=== PATIENT | female | born 1945 | race Hispanic/Latino ===

== ENCOUNTER → 2018-06-26 | Day surgery (SDC) | payer MEDICARE ==
[2018-06-25 11:21] LABS: BASOPHILS % 0.2 % (0.0-1.0); EOSINOPHILS # (AUTO) 0.1 (0.0-0.4); EOSINOPHILS % 1.8 % (0.0-6.0); HEMATOCRIT 43.8 % (34.2-44.1); HEMOGLOBIN 14.2 g/dL (12.0-16.0); LYMPHOCYTES # (AUTO) 1.5 (1.0-3.2); LYMPHOCYTES % 33.8 % (18.0-39.1); MEAN CORPUSCULAR HEMOGLOBIN 29.2 pg (28-32); MEAN CORPUSCULAR HGB CONC 32.4 g/dL (31-35); MEAN CORPUSCULAR VOLUME 90.1 fL (81-99); MONOCYTES # (AUTO) 0.4 (0.2-0.8); MONOCYTES % 8.5 % (4.4-11.3); NEUTROPHILS # (AUTO) 2.4 (2.1-6.9); NEUTROPHILS % 55.5 % (38.7-80.0); PLATELET COUNT 212 x10e3/uL (140-360); RED BLOOD COUNT 4.86 x10e6/uL (3.6-5.1); RED CELL DISTRIBUTION WIDTH 12.9 % (11.7-14.4)
--- NOTE | 2018-06-25 11:49 | Diagnostic Imaging Report ---
EXAMINATION: CHEST 2 VIEWS INDICATION: Pre-op. COMPARISON: None FINDINGS: TUBES and LINES: None. LUNGS: Lungs are well inflated. Lungs are clear. There is no evidence of pneumonia or pulmonary edema. PLEURA: No pleural effusion or pneumothorax. HEART AND MEDIASTINUM: The cardiomediastinal silhouette is unremarkable. BONES AND SOFT TISSUES: No acute osseous abnormality. UPPER ABDOMEN: No free air under the diaphragm. IMPRESSION: No acute radiographic abnormality. Signed by: Dr. Mario Jalloh MD on 06/25/2018 11:46 AM
[~2018-06-26] MED LIST: CEFTRIAXONE SOD 1 GM/NS 50 ML 50 ML IV ONE; DEXAMETHASONE SOD PHOS INJ 4 MG/ML VIAL ONE; FENTANYL CITRATE/PF 100MCG/2 ML INJ ONE; IOPAMIDOL 610MG/1ML 300 MG/ML VIAL IV ONE; LEVOTHYROXINE25 MCG PO; LEVOTHYROXINE88 MCG PO; LIDOCAINE HCL 2% LOCAL INJ 5 ML SDV VIAL INJ ONE; LINZESS PO; NEXIUM40 MG PO; ONDANSETRON HCL INJ 2MG/ML 2ML 2 MG/ML VIAL ONE; PROAIR HFA INH8.5 GM INH; PROPOFOL IV EMULSION 10 MG/ML 20 ML VIAL ONE; SEVOFLURANE INHAL SOLN 250 ML PEN BTL ONE; VITAMIN D250000 UNIT PO; [UNRECOGNIZED DRUG - OTHER] INH; [UNRECOGNIZED DRUG - OTHER] OP/OT; [UNRECOGNIZED DRUG - OTHER] PO; [UNRECOGNIZED DRUG - REMARK] OP/OT
--- OUTSIDE RECORDS SUMMARY | 2018-06-26 08:38 | XMS REPORT ---
Author [facility] Address Unknown Phone Unavailable Care Team Providers Care Busboy Name Role Phone REENA GUEVARA Unavailable Unavailable Problems This patient has no known problems. Allergies, Adverse Reactions, Alerts This patient has no known allergies or adverse reactions. Medications This patient has no known medications. Results Test Description Test Time Test Comments Text Results Atomic Results Result Comments CHEST 2 VIEWS 2018-06-25 11:43:00 [place] [address] Patient Name: MALIA PACHECO MR #: [id number] : 1945 Age/Sex: 73/F Req #: [id number] Adm Physician: Ordered by: REENA GUEVARA MD Report #: [id number] Location: OR Room/Bed: Procedure: [id number] DX/CHEST 2 VIEWS Exam Date: 06/25/18 Exam Time: 1105 REPORT STATUS: Signed EXAMINATION: CHEST 2 VIEWS INDICATION: Pre-op. COMPARISON: None FINDINGS: TUBES and LINES: None. LUNGS: Lungs are well inflated. Lungs are clear. There is no evidence of pneumonia or pulmonary edema. PLEURA: No pleural effusion or pneumothorax. HEART AND MEDIASTINUM: The cardiomediastinal silhouette is unremarkable. BONES AND SOFT TISSUES: No acute osseous abnormality. UPPER ABDOMEN: No free air under the diaphragm. IMPRESSION: No acute radiographic abnormality. Signed by: Dr. Franca Moreira MD on 06/25/2018 11:46 AM Dictated By: FRANCA MOREIRA MD 1146 Transcribed By: ANKIT on 06/25/18 1146 COPY TO: REENA GUEVARA MD
[2018-06-26 10:30] VITALS: BP 124/69
--- NOTE | 2018-06-26 22:42 | Operative Report ---
DATE OF PROCEDURE: 06/26/2018 SURGEON: Rashaun Livingston MD PREOPERATIVE DIAGNOSES: 1. Multiple chronic urinary tract infections. 2. Clinical signs and symptoms of interstitial cystitis. 3. Microscopic hematuria. POSTOPERATIVE DIAGNOSES: 1. Multiple chronic urinary tract infections. 2. Clinical signs and symptoms of interstitial cystitis. 3. Microscopic hematuria. 4. Right renal filling defect. ANESTHESIA: General. ESTIMATED BLOOD LOSS: Minimal. COMPLICATIONS: None. INDICATIONS FOR PROCEDURE: Mrs. Limon is a 73-year-old female with multiple chronic urinary tract infections. She and I had a long discussion about alternatives, risks and benefits, including doing nothing, cystoscopy, IVP, retrograde problems, renal ultrasound. She voiced understanding of the options, the alternatives, the risks, and the benefits, and she elected to proceed. PROCEDURE IN DETAIL: After informed consent was obtained, the patient was taken to the operative suite. She was placed supine on the operating table. She underwent general anesthesia by Anesthesia Service. She was placed in dorsal lithotomy position, sterilely prepped and draped in a standard fashion for cystoscopy. Grade 2-3 cystocele was noted with positive vaginal atrophy. A 21-East [place]orese cystoscope was inserted per urethra and normal urethra was noted. Panendoscopy of the bladder revealed no tumors and no stones. Both ureteral orifices were in normal anatomic location and position and were seen to efflux clear urine. Bilateral retrograde pyelogram was performed; the left was normal, the right revealed a midpole filling defect, which is not cleared despite multiple attempts. With the narrow ureteral orifice, a ureteral stent was deployed with a coil in the patient's bladder and coil in patient's kidney, will return in 1-2 weeks for removal of stent and definitive ureteroscopy of this lesion. Differential diagnosis including radiolucent stone versus tumor. Bladder was drained. The patient was awakened from anesthesia and transferred to the recovery room in excellent condition. Supervision of fluoroscopy and interpretation of retrograde pyelography: I was present for the entire procedure and I supervised the fluoroscopy as no radiologist w0as present. Attention was turned towards the left and right ureters which were catheterized with an 8-East [place]orese cone-tipped catheter in retrograde fashion. Contrast was injected, left side delicate collecting systems, on the right side a midpole renal filling defect approximately 8 mm x 8 mm nonmotile. Differential diagnosis including radiolucent calculi versus tumor. Postoperative views on the right side revealed ureteral stent in adequate position. MD ANGEL Hamlin/HENNA /[id number] MTDD
== END | disposition home or self-care (01) ==
LOC: OR 08:20
PROVIDERS: ATTEND Urology
DX: N39.0 Urinary tract infection, site not specified (principal); N28.89 Other specified disorders of kidney and ureter; R35.1 Nocturia; N39.46 Mixed incontinence; N81.10 Cystocele, unspecified; N95.2 Postmenopausal atrophic vaginitis; G51.0 Bell's palsy; J45.909 Unspecified asthma, uncomplicated; Z01.810 Encounter for preprocedural cardiovascular examination; Z01.812 Encounter for preprocedural laboratory examination; Z01.818 Encounter for other preprocedural examination; Z79.82 Long term (current) use of aspirin
CPT/HCPCS: 36415; 52332; 71046; 74420; 85025; 93005; C1758; C2617; J0696; J1100; J2001; J2405; J2704; Q9967

== ENCOUNTER 2018-08-04 19:41 | Inpatient (IN) | payer MEDICARE, OTHER ==
[~2018-08-04] VITALS: Ht 160 cm; Wt 74.4 kg
[~2018-08-04 19:41] MED LIST changes: -CEFTRIAXONE SOD 1 GM/NS 50 ML 50 ML IV ONE; -DEXAMETHASONE SOD PHOS INJ 4 MG/ML VIAL ONE; -FENTANYL CITRATE/PF 100MCG/2 ML INJ ONE; -IOPAMIDOL 610MG/1ML 300 MG/ML VIAL IV ONE; -LIDOCAINE HCL 2% LOCAL INJ 5 ML SDV VIAL INJ ONE; -ONDANSETRON HCL INJ 2MG/ML 2ML 2 MG/ML VIAL ONE; -PROPOFOL IV EMULSION 10 MG/ML 20 ML VIAL ONE; -SEVOFLURANE INHAL SOLN 250 ML PEN BTL ONE
[2018-08-04] MEDS ORDERED: ACETAMINOPHEN 325 MG TAB PO PRN (20:45)
[2018-08-04] MEDS ORDERED: MEROPENEM 1GM 100 ML IV SCH (21:00)
--- NOTE | 2018-08-04 21:10 | Diagnostic Imaging Report ---
EXAMINATION: CHEST SINGLE (PORTABLE) INDICATION: ^FEVER ^[id number] ^2043 ^Y COMPARISON: 06/25/2018 FINDINGS: AP view TUBES and LINES: None. LUNGS: Limited by body habitus and low lung volumes. Central vascular congestion. PLEURA: No pleural effusion or pneumothorax. HEART AND MEDIASTINUM: The cardiomediastinal silhouette is enlarged on this AP view. BONES AND SOFT TISSUES: No acute osseous lesion. Soft tissues are unremarkable. UPPER ABDOMEN: No free air under the diaphragm. IMPRESSION: Enlarged cardiomediastinal silhouette and central vascular congestion, accentuated by low lung volumes and technique. No definite focal consolidation. Signed by: Dr. Zoran Molina MD on 08/04/2018 9:07 PM
[2018-08-04 21:29] LABS: BASOPHILS % 0.3 % (0.0-1.0); EOSINOPHILS % 0.4 % (0.0-6.0); HEMATOCRIT 44.7 % (34.2-44.1); LYMPHOCYTES # (AUTO) 1.3 (1.0-3.2); LYMPHOCYTES % 19.4 % (18.0-39.1); MEAN CORPUSCULAR HEMOGLOBIN 29.4 pg (28-32); MEAN CORPUSCULAR HGB CONC 33.6 g/dL (31-35); MEAN CORPUSCULAR VOLUME 87.5 fL (81-99); MONOCYTES # (AUTO) 0.6 (0.2-0.8); MONOCYTES % 8.5 % (4.4-11.3); NEUTROPHILS # (AUTO) 4.8 (2.1-6.9); NEUTROPHILS % 71.1 % (38.7-80.0); PLATELET COUNT 209 x10e3/uL (140-360); RED BLOOD COUNT 5.11 x10e6/uL (3.6-5.1); RED CELL DISTRIBUTION WIDTH 13.2 % (11.7-14.4)
[2018-08-04 21:31] LABS: BILIRUBIN,URINE NEGATIVE (NEGATIVE); CLARITY,URINE CLEAR (CLEAR); COLOR,URINE YELLOW (YELLOW); KETONES,URINE NEGATIVE (NEGATIVE); LEUKOCYTE ESTERASE ,URINE TRACE (NEGATIVE); NITRITE,URINE NEGATIVE (NEGATIVE); PROTEIN,URINE DIPSTICK NEGATIVE (NEGATIVE); URINE UROBILINOGEN 0.2 mg/dL (0.2 - 1)
[2018-08-04 21:40] LABS: INR 0.85; PROTHROMBIN TIME 12.1 seconds (11.9-14.5)
[2018-08-04 21:46] LABS: BACTERIA,URINE MANY /HPF; EPITHELIAL CELLS,URINE MODERATE /LPF
[2018-08-04 21:47] LABS: ALBUMIN 4.3 g/dL (3.5-5.0); ALBUMIN/GLOBULIN RATIO 1.1 (0.8-2.0); ANION GAP 14.6 mmol/L (8-16); CALCIUM 10.8 mg/dL (8.4-10.2); CREATININE, SERUM 0.92 mg/dL (0.57-1.11); POTASSIUM 3.6 mmol/L (3.5-5.1)
[2018-08-04] MEDS ORDERED: SODIUM CHLORIDE 0.9% 50ML 50 ML ONE (22:35)
[2018-08-04] MEDS ORDERED: IOPAMIDOL 370 MG/ML 200 ML INFUS..BTL INJ ONE (22:37)
--- NOTE | 2018-08-04 22:50 | Diagnostic Imaging Report ---
EXAM: CT Abdomen and Pelvis WITH contrast INDICATION: ^FEVER, LOWER ABD PAIN, ^[id number] ^5 ^Y COMPARISON: None. TECHNIQUE: Abdomen and pelvis were scanned utilizing a multidetector helical scanner from the lung base to the pubic symphysis after administration of IV contrast. Coronal and sagittal reformations were obtained. Dose modulation, iterative reconstruction, and/or weight based adjustment of the mA/kV was utilized to reduce the radiation dose to as low as reasonably achievable. Routine protocol was performed. Scan was performed when during portal venous phase. IV CONTRAST: 150 mL of Omnipaque 300 ORAL CONTRAST: Water COMPLICATIONS: None RADIATION DOSE: Total DLP: 413.53 mGy*cm Estimated effective dose: (DLP x 0.015 x size factor) mSv CTDIvol has been reviewed. It is below the limits set by the Radiation Protocol Committee (RPC). FINDINGS: LINES and TUBES: Right nephroureteral stent. LOWER THORAX: Punctate left lower lobe nodule (series 2, image 12). Additional punctate right middle and lower lobe nodules. Mild dependent atelectasis. HEPATOBILIARY: No focal hepatic lesions. No biliary ductal dilation. GALLBLADDER: No radio-opaque stones or sludge. No wall thickening. SPLEEN: No splenomegaly. PANCREAS: No focal masses or ductal dilatation. ADRENALS: No adrenal nodules KIDNEYS/URETERS: Kidneys enhance symmetrically. No hydronephrosis. No cystic or solid mass lesions. No stones. Right nephroureteral stent in place. GI TRACT: No abnormal distention, wall thickening, or evidence of bowel obstruction. Colonic diverticulosis with fat stranding adjacent to colon in left lower quadrant, representing diverticulitis. Questionable punctate foci of extraluminal air (series 2, image 65). Appendix is normal. PELVIC ORGANS/BLADDER: Unremarkable. LYMPH NODES: No lymphadenopathy. VESSELS: Unremarkable. PERITONEUM / RETROPERITONEUM: No free air or fluid. BONES: Bilateral L5 pars defects with L5-S1 grade 1 spondylolisthesis. SOFT TISSUES: Small fat-containing right inguinal hernia. IMPRESSION: 1. Colonic diverticulosis with evidence of diverticulitis in left lower quadrant. Suspected microperforation. No evidence of abscess formation. Signed by: Dr. Zoran Molina MD on 08/04/2018 10:47 PM
[2018-08-04] MEDS: SODIUM CHLORIDE 0.9% 1000ML 1,000 ML IV SCH (23:04)
[2018-08-04] MEDS ORDERED: SODIUM CHLORIDE 0.9% 1000ML 1,000 ML IV SCH (23:31)
[2018-08-04] MEDS ORDERED: ONDANSETRON HCL INJ 2MG/ML 2ML 2 MG/ML VIAL IV PRN (23:45)
[2018-08-04] MEDS ORDERED: MORPHINE SULFATE 2 MG/ML SYR 1ML IV PRN (23:45)
[2018-08-04] MEDS ORDERED: ACETAMINOPHEN 1000 MG/100 ML IV PRN (23:45)
[2018-08-05] MEDS ORDERED: PIPER-TAZ 3.375 GM 50 ML IV SCH
[2018-08-05] MEDS: METRONIDAZOLE 500MG/NS 100ML 100 ML IV SCH ×5 (01:00→17:37)
[2018-08-05 06:08] LABS: BASOPHILS % 0.3 % (0.0-1.0); EOSINOPHILS % 0.5 % (0.0-6.0); HEMATOCRIT 39.2 % (34.2-44.1); LYMPHOCYTES % 25.7 % (18.0-39.1); MEAN CORPUSCULAR HEMOGLOBIN 29.5 pg (28-32); MEAN CORPUSCULAR HGB CONC 33.2 g/dL (31-35); MEAN CORPUSCULAR VOLUME 89.1 fL (81-99); MONOCYTES # (AUTO) 0.7 (0.2-0.8); MONOCYTES % 9.5 % (4.4-11.3); NEUTROPHILS # (AUTO) 4.8 (2.1-6.9); NEUTROPHILS % 63.6 % (38.7-80.0); PLATELET COUNT 191 x10e3/uL (140-360); RED CELL DISTRIBUTION WIDTH 13.2 % (11.7-14.4)
[2018-08-05 06:28] LABS: ALBUMIN 3.5 g/dL (3.5-5.0); ALBUMIN/GLOBULIN RATIO 1.2 (0.8-2.0); ANION GAP 9.8 mmol/L (8-16); CALCIUM 9.3 mg/dL (8.4-10.2); CREATININE, SERUM 0.91 mg/dL (0.57-1.11); POTASSIUM 3.8 mmol/L (3.5-5.1)
--- NOTE | 2018-08-05 06:35 | NUR ---
Patient arrived to unit via stretcher from ER. Transferred to bed. Oriented to call light. No issues or concerns. A&Ox3. Will continue to monitor.
--- NOTE | 2018-08-05 06:58 | NUR ---
RECEIVED PATIENT RESTING IN BED. NO ACUTE DISTRESS NOTED, NO S/S OF PAIN NOTED. CALL LIGHT WITHIN REACH. BED IN THE LOWEST POSITION.
[2018-08-05 07:20] VITALS: BP 125/64
[2018-08-05 08:13] VITALS: BP 125/64
[2018-08-05] MEDS: FAMOTIDINE 20 MG/2 ML VIAL IV SCH ×2 (08:48→17:04)
[2018-08-05] MEDS: PIPER-TAZ 3.375 GM 50 ML IV SCH ×3 (08:48→17:04)
--- NOTE | 2018-08-05 11:28 | Consultation ---
DATE OF CONSULTATION: 08/05/2018 HISTORY OF PRESENT ILLNESS: The patient is a 73-year-old female, who came to the emergency room with complaints of lower abdominal pain. She says she had it for about two or three days. She has had associated nausea, no vomiting. She had evaluation with CT of the abdomen and pelvis in the emergency room, which revealed findings suggestive of diverticulosis with some mild diverticulitis, possible tiny perforation. She has ureteral stent in place at this time, which was placed recently. She has not had any diarrhea. PAST MEDICAL HISTORY: Significant for chronic obstructive pulmonary disease, hypothyroidism, previous urinary tract infections, kidney stones, hyperlipidemia. PAST SURGICAL HISTORY: Previous surgeries include section, hernia repair, shoulder surgery, as well as recent placement of a stent. ALLERGIES: SHE HAS NO KNOWN ALLERGIES. MEDICATIONS: At home are albuterol inhaler, vitamin D, Nexium, levothyroxine, Linzess, Flutivent, calcium supplement, eye drops. FAMILY HISTORY: Noncontributory. SOCIAL HISTORY: The patient does not smoke cigarettes or drink alcohol. REVIEW OF SYSTEMS: As stated above, otherwise was negative. PHYSICAL EXAMINATION: GENERAL: The patient is awake and alert. VITAL SIGNS: Normal. Blood pressure is normal. She is not tachycardic. HEENT: There is no scleral icterus. NECK: Has no masses. LUNGS: Equal breath sounds are clear bilaterally. CARDIAC: Regular rate and rhythm. ABDOMEN: Slightly distended. There is tenderness in the lower abdomen with questionable localized peritonitis in lower abdomen, greatest in the lower midline. There is no mass. There was no organomegaly. EXTREMITIES: Have no edema. NEUROLOGIC: Grossly intact. LAB TESTS: The white blood cell count is normal with normal differential. Hemoglobin and hematocrit are normal. Chemistries essentially are normal also. ASSESSMENT: A 73-year-old female with mild sigmoid diverticulitis. There are no findings that would warrant immediate surgical intervention. At this point, I recommend continue the patient on IV antibiotics as have been ordered and we will follow her clinical course. Thank you for asking me to see Ms. Limon. MD MIRTHA Shaikh/HENNA /[id number]
[2018-08-05 11:33] VITALS: BP 115/59
[2018-08-05] MEDS: SODIUM CHLORIDE 0.9% 1000ML 1,000 ML IV SCH (11:54)
[2018-08-05 15:47] VITALS: BP 121/58
--- NOTE | 2018-08-05 19:29 | NUR ---
REPORT GIVEN TO ONCOMING NURSE, PATIENT IS RESTING IN BED. NO ACUTE DISTRESS NOTED. DENIES PAIN OR DISCOMFORT. CALL LIGHT WITHIN REACH. BED IN THE LOWEST POSITION.
[2018-08-05 19:46] VITALS: BP 108/61
--- NOTE | 2018-08-05 19:46 | NUR ---
PT IS RESTING IN BED WITH FAMILY AT BEDSIDE. RESPIRATION IS EVEN AND UNLABORED, NO DISTRESS NOTED. BED IN THE LOWEST POSITION, LOCKED, AND CALL LIGHT WITHIN REACH. WILL CONTINUE TO MONITOR.
[2018-08-05 20:01] VITALS: BP 108/61
[2018-08-05] MEDS ORDERED: MORPHINE SULFATE INJ 4 MG/ML INJ 1ML IV PRN (22:00)
--- NOTE | 2018-08-05 22:13 | NUR ---
H&P cc: abdominal gilmar HPI: 73yoF, PCP , developed abdominal pain 9/10 for 2 days; No N/V/D. Found to have acute diverticulitis. PMH: overweight. PSHx: Hernia repair, , back, knee Allergies; see emr SH: ; no cigs Meds; see MAR ROS: no f/c/s/N/V/D/GABRIEL/vision changes/cp/sob/dizziness/skin rash V/S: revd PE: tired appearing anicteric ns1s2 mod bs soft nd; mild lower abdominal tenderness; skin dry flat affect labs/meds revd A/P: 73 Diverticulitis Sepsis Dehydration Hypercelcemia UTI Overweight BMI 29.1 PLAN: IV abx; sx eval IVF f/u cultures; screen for DM scd/pepcid Chevy Duckworth MD, PhD.
[2018-08-06] VITALS (9 sets, daily range): BP systolic 97–134; BP diastolic 53–66
[2018-08-06] MEDS: METRONIDAZOLE 500MG/NS 100ML 100 ML IV SCH ×4 (00:34→17:34)
[2018-08-06] MEDS: SODIUM CHLORIDE 0.9% 1000ML 1,000 ML IV SCH ×2 (01:58→17:03)
[2018-08-06] MEDS: LEVOTHYROXINE SODIUM 100 MCG/VIAL IV SCH ×2 (05:47→06:23)
[2018-08-06] MEDS: PIPER-TAZ 3.375 GM 50 ML IV SCH ×4 (05:47→17:03)
[2018-08-06] MEDS ORDERED: LEVOTHYROXINE SODIUM 100 MCG/VIAL IV SCH (06:00)
--- NOTE | 2018-08-06 06:58 | NUR ---
RECEIVED PATIENT RESTING IN BED. NO ACUTE DISTRESS NOTED, DENIES PAIN OR DISCOMFORT. CALL LIGHT WITHIN REACH. BED IN THE LOWEST POSITION.
[2018-08-06 08:10] LABS: ANION GAP 11.5 mmol/L (8-16); BLOOD UREA NITROGEN 13 mg/dL (7-26); BUN/CREATININE RATIO 16 (6-25); CALCIUM 8.9 mg/dL (8.4-10.2); CARBON DIOXIDE 23 mmol/L (22-29); CHLORIDE 106 mmol/L (98-107); EST GLOMERULAR FILTRATION RATE > 60 ML/MIN (60-); GLUCOSE 78 mg/dL (74-118); PHOSPHORUS 2.3 MG/DL (2.3-4.7); POTASSIUM 3.5 mmol/L (3.5-5.1); SODIUM 137 mmol/L (136-145)
[2018-08-06] MEDS: FAMOTIDINE 20 MG/2 ML VIAL IV SCH (08:23)
[2018-08-06 08:35] LABS: BASOPHILS % 0.2 % (0.0-1.0); EOSINOPHILS % 0.3 % (0.0-6.0); HEMATOCRIT 38.8 % (34.2-44.1); HEMOGLOBIN 12.8 g/dL (12.0-16.0); LYMPHOCYTES % 16.2 % (18.0-39.1); MEAN CORPUSCULAR HEMOGLOBIN 29.1 pg (28-32); MEAN CORPUSCULAR VOLUME 88.2 fL (81-99); MONOCYTES # (AUTO) 0.3 (0.2-0.8); MONOCYTES % 4.7 % (4.4-11.3); NEUTROPHILS # (AUTO) 4.9 (2.1-6.9); NEUTROPHILS % 78.4 % (38.7-80.0); PLATELET COUNT 183 x10e3/uL (140-360); RED CELL DISTRIBUTION WIDTH 13.2 % (11.7-14.4)
--- NOTE | 2018-08-06 10:03 | NUR ---
PAGED DR. JERONIMO FOR CLEARANCE FOR PATIENT TO HAVE UROLOGY PROCEDURE. PER MD IS OK WITH HIM.
--- NOTE | 2018-08-06 10:38 | NUR ---
CALLED DR. GUEVARA'S WRAPPER SELECTOR TO NOTIFY HER THAT PATIENT IS INPATIENT AND DR. GUEVARA ASKED FOR NURSE TO GET CLEARANCE FROM DR. JERONIMO. TOLD HER THAT DR. JERONIMO IS OK WITH PATIENT GETTING PROCEDURE TOMORROW.
--- NOTE | 2018-08-06 11:06 | NUR ---
IM- progress note O/N; no events ROS: no f/c/s/N/V/D/GABRIEL/vision changes/cp/sob/dizziness/skin rash V/S: revd PE: tired appearing anicteric ns1s2 mod bs soft nd; mild lower abdominal tenderness; skin dry flat affect labs/meds revd A/P: 73 Diverticulitis Sepsis Dehydration Hypercelcemia UTI Overweight BMI 29.1 PLAN: IV abx; sx eval IVF f/u cultures; screen for DM scd/pepcid 08/06 advance diet; improving; check labs; Chevy Duckworth MD, PhD.
[2018-08-06] MEDS ORDERED: ONDANSETRON HCL 4 MG ORAL DISINTEGRATING TAB PO PRN (12:45)
--- NOTE | 2018-08-06 14:39 | NUR ---
DISCUSSED PT IS BARRIERS PT GETTING CYSTO FOR RT STENT REMOVAL ON 2 ABX, WAITING ON PLAN FROM DOCTOR.
[2018-08-06] MEDS: FAMOTIDINE 20 MG TAB PO SCH (17:03)
[2018-08-06] MEDS ORDERED: ONDANSETRON HCL INJ 2MG/ML 2ML 2 MG/ML VIAL IV PRN (17:45)
--- NOTE | 2018-08-06 18:51 | NUR ---
REPORT GIVEN TO ONCOMING NURSE, PATIENT IS RESTING IN BED. RESPIRATIONS EVEN AND UNLABORED. NO ACUTE DISTRESS NOTED. DENIES PAIN OR DISCOMFORT. CALL LIGHT WITHIN REACH. BED IN THE LOWEST POSITION.
--- NOTE | 2018-08-06 19:47 | NUR ---
PT IS RESTING IN BED WITH FAMILY AT BESIDE. RESPIRATION IS EVEN AND UNLABORED, NO DISTRESS NOTED. BED IN THE LOWEST POSITION, LOCKED, AND CALL LIGHT WITHIN REACH. WILL CONTINUE TO MONITOR.
[2018-08-07] MEDS: PIPER-TAZ 3.375 GM 50 ML IV SCH ×4 (00:29→18:36)
[2018-08-07 04:26] VITALS: BP 124/60
[2018-08-07] MEDS: METRONIDAZOLE 500MG/NS 100ML 100 ML IV SCH ×4 (06:01→18:36)
[2018-08-07] MEDS: LEVOTHYROXINE SODIUM 100 MCG/VIAL IV SCH (06:01)
--- NOTE | 2018-08-07 06:28 | NUR ---
PT IS OFF THE FLOOR FOR PROCEDURE. WILL CONTINUE TO MONITOR
[2018-08-07] MEDS ORDERED: IOPAMIDOL 610MG/1ML 300 MG/ML VIAL IV ONE (06:33)
[2018-08-07 08:00] VITALS: BP 122/60
[2018-08-07 09:00] VITALS: BP 122/60
--- NOTE | 2018-08-07 09:00 | NUR ---
Pt returned from OR at this time s/p C&R with stent removal. Denies any pain at this time. Pt a0x4 and a little drowsy at this time. No bleeding noted.
[2018-08-07] MEDS: FAMOTIDINE 20 MG TAB PO SCH ×2 (09:45→18:36)
[2018-08-07 12:00] VITALS: BP 108/56
[2018-08-07] MEDS ORDERED: ONDANSETRON HCL INJ 2MG/ML 2ML 2 MG/ML VIAL ONE (14:19)
[2018-08-07] MEDS ORDERED: LIDOCAINE HCL 2% JELLY 5 ML TUBE ONE (14:19)
[2018-08-07] MEDS ORDERED: PROPOFOL IV EMULSION 10 MG/ML 20 ML VIAL ONE (14:19)
[2018-08-07] MEDS ORDERED: DESFLURANE 240 ML BTL INH ONE (14:19)
[2018-08-07] MEDS ORDERED: LIDOCAINE HCL 2% LOCAL INJ 5 ML SDV VIAL INJ ONE (14:19)
[2018-08-07] MEDS ORDERED: MIDAZOLAM HCL 2 MG/2 ML VIAL ONE (14:44)
[2018-08-07] MEDS ORDERED: FENTANYL CITRATE/PF 100MCG/2 ML INJ ONE (14:44)
[2018-08-07 16:00] VITALS: BP 117/58
[2018-08-07] MEDS: SODIUM CHLORIDE 0.9% 1000ML 1,000 ML IV SCH (16:54)
--- NOTE | 2018-08-07 17:30 | NUR ---
Pt continues on IV antibiotics and well tolerated. Pt is tolerating clear liquid well. Denies nausea, vomiting. Continues on IVF NS@100ml/hr and well tolerated.
--- NOTE | 2018-08-07 19:10 | NUR ---
Patient visited in room during nursing rounds. Patient alert and oriented x3. Albanian speaking only. Vital sign stable and pt afebrile at this time. Heart rate on 50s (56) at this time. No distress or discomfort noted. Will monitor closely. Call luque within reach.
[2018-08-07 20:07] VITALS: BP 113/58
--- NOTE | 2018-08-07 21:00 | NUR ---
Spoke with Dr. Duckworth and informed about pt having loose stools (dark brown to black in color) and having a total of 5 bowel movements today. MD aware and ordered to collect stool to test for C. diff, D/C IV Zosyn, Advance diet as tolerated, and AM labs (CBC, BMP).
[2018-08-08] VITALS: BP 118/58
[2018-08-08] MEDS: METRONIDAZOLE 500MG/NS 100ML 100 ML IV SCH ×4 (00:29→17:20)
[2018-08-08 04:00] VITALS: BP 113/61
[2018-08-08] MEDS: SODIUM CHLORIDE 0.9% 1000ML 1,000 ML IV SCH (05:01)
[2018-08-08 05:10] LABS: BASOPHILS % 0.3 % (0.0-1.0); EOSINOPHILS # (AUTO) 0.1 (0.0-0.4); EOSINOPHILS % 2.5 % (0.0-6.0); HEMATOCRIT 36.2 % (34.2-44.1); HEMOGLOBIN 12.1 g/dL (12.0-16.0); LYMPHOCYTES # (AUTO) 1.4 (1.0-3.2); LYMPHOCYTES % 34.2 % (18.0-39.1); MEAN CORPUSCULAR HEMOGLOBIN 29.4 pg (28-32); MEAN CORPUSCULAR HGB CONC 33.4 g/dL (31-35); MEAN CORPUSCULAR VOLUME 88.1 fL (81-99); MONOCYTES # (AUTO) 0.4 (0.2-0.8); NEUTROPHILS # (AUTO) 2.2 (2.1-6.9); PLATELET COUNT 175 x10e3/uL (140-360); RED BLOOD COUNT 4.11 x10e6/uL (3.6-5.1); RED CELL DISTRIBUTION WIDTH 13.2 % (11.7-14.4)
[2018-08-08 05:27] LABS: ANION GAP 8.6 mmol/L (8-16); BLOOD UREA NITROGEN 7 mg/dL (7-26); BUN/CREATININE RATIO 9 (6-25); CALCIUM 8.6 mg/dL (8.4-10.2); CARBON DIOXIDE 27 mmol/L (22-29); CHLORIDE 108 mmol/L (98-107); CREATININE, SERUM 0.82 mg/dL (0.57-1.11); EST GLOMERULAR FILTRATION RATE > 60 ML/MIN (60-); GLUCOSE 89 mg/dL (74-118); POTASSIUM 3.6 mmol/L (3.5-5.1); SODIUM 140 mmol/L (136-145)
[2018-08-08] MEDS: LEVOTHYROXINE SODIUM 100 MCG/VIAL IV SCH (06:39)
[2018-08-08 08:00] VITALS: BP 136/65
[2018-08-08] MEDS: FAMOTIDINE 20 MG TAB PO SCH ×2 (08:22→17:20)
[2018-08-08 08:52] VITALS: BP 136/65
--- NOTE | 2018-08-08 10:10 | NUR ---
D/C summary: Principal Dx: Diverticulitis Sepsis Dehydration Hypercelcemia UTI Overweight BMI 29.1 Secondary dx: Overweight PLAN: IV abx; sx eval IVF f/u cultures; screen for DM scd/pepcid 08/06 advance diet; improving; check labs; 08/07 improving; cont care; 08/08 d/c planning d.c home f/u pcp 1 week and GI for endoscopy in 6-8 weeks stable d/c>35mins Chevy Duckworth MD, PhD.
--- NOTE | 2018-08-08 10:10 | NUR ---
DOS: 08/07/18 t 815am IM- progress note O/N; no events ROS: no f/c/s/N/V/D/GABRIEL/vision changes/cp/sob/dizziness/skin rash V/S: revd PE: tired appearing anicteric ns1s2 mod bs soft nd; mild lower abdominal tenderness; skin dry flat affect labs/meds revd A/P: 73 Diverticulitis Sepsis Dehydration Hypercelcemia UTI Overweight BMI 29.1 PLAN: IV abx; sx eval IVF f/u cultures; screen for DM scd/pepcid 08/06 advance diet; improving; check labs; 08/07 improving; cont care; Chevy Duckworth MD, PhD.
[2018-08-08] MEDS ORDERED: FLAGYL500 MG PO (10:14)
[2018-08-08 12:04] VITALS: BP 121/64
[2018-08-08 17:00] VITALS: BP 110/57
--- NOTE | 2018-08-08 18:18 | NUR ---
Spoke with Dr. Duckworth to report pending lab results and to let him know that pt is tolerating regular diet. Dr. Duckworth gave orders for pt to discharge home.
--- NOTE | 2018-08-08 18:30 | NUR ---
Pt discharged at this time. Education provided to pt regarding follow up instructions and diet instructions. Pt verbalized understanding of all discharge instructions and follow ups.
--- NOTE | 2018-08-08 19:58 | Operative Report ---
DATE OF PROCEDURE: 08/07/2018 SURGEON: Rashaun Livingston MD PREOPERATIVE DIAGNOSES: 1. Indwelling right ureteral stent. 2. Right hydronephrosis. POSTOPERATIVE DIAGNOSES: 1. Indwelling right ureteral stent. 2. Right hydronephrosis. PROCEDURES: 1. Cystoscopy with complicated removal of right indwelling stent (entirely separate procedure with complicated secondary to habitus incrustation). 2. Right-sided ureteroscopy (entirely separate procedure for hydronephrosis). 3. Supervision of fluoroscopy for ureteroscopy portion. 4. Supervision of fluoroscopy for stent removal portion. 5. Interpretation of retrograde pyelography. ANESTHESIA: General. ESTIMATED BLOOD LOSS: Minimal. COMPLICATIONS: None. INDICATIONS: Ms. Limon is a 73-year-old female with a history of hydronephrosis and stent placement. She and I had a long discussion about alternatives, risks, and benefits including nothing, ureteroscopy, percutaneous surgery or open surgery. She voiced understanding of the options, the alternatives, the risks and the benefits, and elected to proceed. PROCEDURE IN DETAIL: After informed consent was obtained, the patient was taken to the operative suite, placed supine, underwent general anesthesia by the service, placed in dorsal lithotomy position, sterilely prepped and draped for cystoscopy. A 22.5- Venezuelan cystoscope was inserted per urethra. Normal urethra was noted. Panendoscopy of the bladder revealed no tumors and no stones, both orifices in normal anatomic location and position. Stent was seen extruding through the right ureteral orifice was grasped and removed. Attempt was made to insert a guidewire, this failed secondary to encrustation Guidewire was inserted alongside the stent and was seen to coil at the level of the renal pelvis on fluoroscopy. Rigid ureteroscope was advanced to the level of renal pelvis. There was a definite UPJ obstruction almost in an iris-like fashion. Retrograde pyelogram performed. The scope revealed prompt drainage of collecting system. No stones seen. The safety wire was removed. The bladder was drained. The patient was awakened anesthesia and transferred to recovery room in excellent condition, no untoward effects noted. Supervision of fluoroscopy and interpretation of retrograde pyelography: I was present for the entire procedure and I supervised the use of fluoroscopy as no radiologist was present at any time during this procedure. Attention was turned towards the right orifice. Ureteroscope was introduced. Supervised fluoroscopy for both ureteroscopic and stent removal portions. Retrograde pyelogram performed through ureteroscope under fluoroscopy. There were no filling defects. No stones. Rashaun Livingston MD ES/MODL /[id number] cc: Chevy Duckworth MD MTDD
== END 2018-08-08 19:18 | disposition home or self-care (01) | DRG 698 ==
LOC: ER 19:41 → ERHOLD 23:42 → MED/SURG3 08-05 06:35
PROVIDERS: ADMIT Internal Medicine; ATTEND Internal Medicine
PROC: 0TP98DZ Removal of Intraluminal Device from Ureter, Via Natural or Artificial Opening Endoscopic (ICD-10-PCS; principal; 2018-08-07 07:06)
PROC: BT1D1ZZ Fluoroscopy of Right Kidney, Ureter and Bladder using Low Osmolar Contrast (ICD-10-PCS; 2018-08-07 07:06)
DX: T83.593A Infection and inflammatory reaction due to other urinary stents, initial encounter (principal); A41.9 Sepsis, unspecified organism; K57.20 Diverticulitis of large intestine with perforation and abscess without bleeding; N13.30 Unspecified hydronephrosis; N39.0 Urinary tract infection, site not specified; J44.9 Chronic obstructive pulmonary disease, unspecified; E03.9 Hypothyroidism, unspecified; E78.5 Hyperlipidemia, unspecified; R31.29 Other microscopic hematuria; R35.1 Nocturia; N39.46 Mixed incontinence; G51.0 Bell's palsy; E83.52 Hypercalcemia; E86.0 Dehydration
CPT/HCPCS: 36415; 71045; 74177; 74420; 80048; 80053; 81001; 82948; 83605; 83735; 84100; 85025; 85610; 85730; 87040; 87086; 87493; 93005; 99284; J2001; J2250; J2405; J2543; J7030; Q9967

== ENCOUNTER 2018-08-17 18:48 | Emergency (ER) | payer MEDICARE, OTHER ==
[~2018-08-17] VITALS: Ht 160 cm; Wt 74.4 kg
[~2018-08-17 18:48] MED LIST changes: +FLAGYL500 MG PO
[2018-08-17 22:07] LABS: BILIRUBIN,URINE NEGATIVE (NEGATIVE); CLARITY,URINE CLEAR (CLEAR); COLOR,URINE YELLOW (YELLOW); KETONES,URINE NEGATIVE (NEGATIVE); LEUKOCYTE ESTERASE ,URINE NEGATIVE (NEGATIVE); NITRITE,URINE NEGATIVE (NEGATIVE); PROTEIN,URINE DIPSTICK NEGATIVE (NEGATIVE); URINE UROBILINOGEN 0.2 mg/dL (0.2 - 1)
[2018-08-17 22:39] LABS: BACTERIA,URINE FEW /HPF; EPITHELIAL CELLS,URINE MODERATE /LPF; WBC,URINE (MAN) 0-5 /HPF (0-5)
[2018-08-17] MEDS ORDERED: TRAMADOL HCL 50 MG TAB PO ONE (22:45)
--- NOTE | 2018-08-17 23:27 | Diagnostic Imaging Report ---
Lumbar Spine Radiographs: 3 views HISTORY: Pain COMPARISON: CT dated 08/04/2018 DISCUSSION: Some of the osseous structures are partially obscured by stool and bowel gas. There are five non-rib bearing lumbar vertebral bodies. No displaced fracture or compression deformity is identified. Again seen L5 pars defects with L5-S1 spondylolisthesis and posterior wedging of L5 vertebral body. L5-S1 disc space narrowing. Otherwise disc spaces are preserved. IMPRESSION: No acute radiographic abnormality. Signed by: Dr. Zoran Molina MD on 08/17/2018 11:23 PM
[2018-08-18 00:52] VITALS: BP 124/66
== END 2018-08-18 01:06 | disposition home or self-care (01) ==
LOC: ER 18:48
DX: M54.5 Low back pain (principal); S39.012A Strain of muscle, fascia and tendon of lower back, initial encounter; J44.9 Chronic obstructive pulmonary disease, unspecified; E03.9 Hypothyroidism, unspecified; K21.9 Gastro-esophageal reflux disease without esophagitis; E78.5 Hyperlipidemia, unspecified; J45.909 Unspecified asthma, uncomplicated
CPT/HCPCS: 72100; 81001; 99284

== ENCOUNTER 2019-08-11 23:54 | Emergency (ER) | payer MEDICARE, OTHER ==
[~2019-08-11] VITALS: Ht 160 cm; Wt 74.8 kg
--- OUTSIDE RECORDS SUMMARY | 2019-08-11 23:59 | XMS REPORT | Continuity of Care Document ---
Author Author [facility] t Organization [facility] Address 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 Attphys Unavailable Karen OLIVARES Attphys Unavailable Ibrahima FREITAS Attphys Unavailable REENA GUEVARA Attphys Unavailable Payers Payer Name Policy Type Policy Number Effective Date Expiration Date Karen Zheng [employer] [id number] 2018 00:00:00 [facility] [employer] [id number] 2012 00:00:00 [facility] Problems Condition Name Condition Details Condition Category Status Onset Date Resolution Date Last Treatment Date Treating Clinician Comments Source Arthritis Arthritis Problem Active [facility] Asthma Asthma Problem Active [facility] Cataract Cataract Problem Active [facility] Gastritis Gastritis Problem Active [facility] Unspecified glaucoma Unspecified glaucoma Problem Active [facility] Thyroid disease Thyroid disease Problem Active [facility] Chronic GERD Chronic GERD Problem Active [facility] Deviated nasal septum Deviated nasal septum Problem Active [facility] Vocal cord paralysis Vocal cord paralysis Problem Active [facility] Diverticulitis of large intestine with perforation Div erticulitis of colon with perforation Problem Active [facility] Fever Fever Problem Active [facility] Urinary tract infection UTI (urinary tract infection) Problem Active [facility] Allergies, Adverse Reactions, Alerts Allergy Name Allergy Type Status Severity Reaction(s) Onset Date Inacti ve Date Treating Clinician Comments Source No Known Allergies DA Active U 2015-10-12 00:00:00 [facility] Social History Smoking Status Start Date Stop Date Source Never smoker [facility] Medications Ordered Medication Name Filled Medication Name Start Date Stop Da te Current Medication? Ordering Clinician Indication Dosage Frequency Signature (SIG) Comments Components Source Metronidazole (Flagyl) 500 Mg Tablet Metronidazole (Flagyl) 500 Mg Tablet 2018-08-08 00:00:00 Yes Chevy Duckworth Md 500 Every 8 Ho urs [facility] Esomeprazole Magnesium 20 MG Oral Capsule Delayed Rele ase Esomeprazole Magnesium 20 MG Oral Capsule Delayed Release Yes M[facility] Vitamin D3 125 MCG (5000 UT) Oral Tablet Vitamin D3 12 5 MCG (5000 UT) Oral Tablet Yes M[facility] Levothyroxine Sodium TABS Levothyroxine Sodium TABS Yes [facility] Linzess CAPS Linzess CAPS Yes M.[facility] ProAir HFA AERS ProAir HFA AERS Yes [facility] Melatonin 3 MG Oral Tablet Melatonin 3 MG Oral Tablet Yes [facility] Aspirin 81 MG TABS Aspirin 81 MG TABS Yes M[facility] Albuterol Sulfate (Proair Hfa Inhaler*) 8.5 Gm Inh Alb uterol Sulfate (Proair Hfa Inhaler*) 8.5 Gm Inh Yes 4 As Needed [facility] Ergocalciferol (Vitamin D2) (Vitamin D2) 50,000 Unit C apsule Ergocalciferol (Vitamin D2) (Vitamin D2) 50,000 Unit Capsule Yes 5000 0 Weekly [facility] Esomeprazole Magnesium (Nexium) 40 Mg Capsule.dr Sawant prazole Magnesium (Nexium) 40 Mg Capsule. Yes 40 Daily [facility] Flutivent Flutivent Yes 125 As Needed [facility] Levothyroxine Sodium 88 Mcg Tablet Levothyroxine Sodium 88 Mcg Tablet Yes 88 Daily [facility] Linzess Linzess Yes 145 As Needed [facility] Oscal Calcium D3 Oscal Calcium D3 Yes 200 Daily [facility] System Eye Drops System Eye Drops Yes 1 Daily [facility] Daysi Tavarez Yes .01 Daily [facility] Levothyroxine Sodium 25 Mcg Tablet, 25 Mcg Oral Levoth yroxine Sodium 25 Mcg Tablet, 25 Mcg Oral 2018-06-26 00:00:00 No 25 Juan Manuel y [facility] Vital Signs Vital Name Observation Time Observation Value Comments Source BP Systolic 2019-01-22 10:04:00 131 mm[Hg] Location: LUE; Positi on: Sitting [facility] BP Diastolic 2019-01-22 10:04:00 73 mm[Hg] Location: LIANGE; Positi on: Sitting [facility] Height 2019-01-22 10:04:00 63 [in_us] [facility] Weight 2019-01-22 10:04:00 162.125 [lb_av] [facility] Body Mass Index Calculated 2019-01-22 10:04:00 28.72 kg/m2 [facility] Heart Rate 2019-01-22 10:04:00 54 /min [facility] BP Systolic 2019-01-22 09:59:00 107 mm[Hg] Location: LUE; Positi on: Sitting [facility] BP Diastolic 2019-01-22 09:59:00 73 mm[Hg] Location: LIANGE; Positi on: Sitting [facility] Heart Rate 2019-01-22 09:59:00 89 /min [facility] Weight 2019-01-12 10:26:00 162.25 [lb_av] [facility] Procedures Procedure Date / Time Performed Performing Clinician [facility] e CT Chest w contrast [id number] 2019-01-12 00:00[facility]00 [facility] REMOVAL OF INTRALUMINAL DEVICE FROM URETER, ENDO 2018-08-07 00:00:00 CHETREENA [facility] FLUOROSCOPY KIDNEY, URETER, BLADDER, R W L OSM CONTRAST 2018 00:00:00 REENA GUEVARA [facility] Computed tomography of abdomen and pelvis with contrast 2018 00:00:00 SHERRON FREITAS [facility] CYSTOSCOPY AND TREATMENT 2018-06-26 00:00:00 REENA GUEVARA [facility] X-ray of chest, two views 2018-06-25 00:00:00 REENA GUEVARA [facility] History of Section [facility] History of Hernia Repair [facility] History of Back Surgery [facility] Encounters Start Date/Time End Date/Time Encounter Type Admission Type Attendi [facility] Care Department Encounter ID Source 2019-01-22 09:30:00 2019-01-22 09:30:00 Appointment; SHERRON BARNETT M.D. BYRD, MICHAEL, M.D. [facility] Otorhinolaryngology [facility] [id number] [facility] 2019 09:03:00 2019 09:03:[id number] 2019-01-12 09:00:00 2019-01-12 09:00:00 Appointment; SHERRON BARNETT M.D. BYRD, MICHAEL, M.D. [facility] [id number] [facility] 2018-08-17 18:48:00 2018-08-18 01:06:00 Departed Emergency Room 1 JUVE OLIVARES [facility] [id number] [facility] 2018-08-04 23:42:00 2018-08-08 19:18:00 Discharged Inpatient 1 SHERRON FREITAS [facility] [id number] [facility] 2018-06-26 08:20:00 2018-06-26 08:20:00 Registered Surgical Day Car e 3 REENA GUEVARA [facility] [id number] [facility] Results Test Description Test Time Test Comments Results Result Comments Source CT Chest w contrast [id number] 2019 09:08:00 Ra diation Dose CTDIVOL = 0 (mGy): DLP = 280 (mGy-cm)PROCEDURE INFORMATION:Exam: CT Chest With ContrastExam date and time: 2019 10:32 AMClinical history: 74 years old, female; Paralysis of vocal cords and larynx,unspecified; Additional info: /j38.00 paralysis of vocal cords and larynx,unspecified. Last exam they found a shadow in between the neck and chest andwant to know what it isTECHNIQUE:Imaging protocol: Computed tomography of the chest with intravenous contrast.Total DLP: 280 mGy-cmRadiation optimization: All CT scans at this facility use at least one of thesedose optimization techniques: automated exposure control; mA and/or kVadjustment per patient size (includes targeted exams where dose is matched toclinical indication); or iterative reconstruction.Contrast material: OMNI; Contrast volume: 100 ml; Contrast route: IV; COMPARISON:CR CHEST 2 VIEWS DX 07/06/2018 11:48 AMFINDINGS:Lungs: Unremarkable. No consolidation. No masses.Pleural space: Unremarkable. No pneumothorax. No pleural effusion.Heart: Coronary calcification. No cardiomegaly. No pericardial effusion.Aorta: Unremarkable. No aortic aneurysm. There is marked tortuosity of theproximal great vessels. No stenosis, dissection or aneurysm is otherwise noted.Lymph nodes: Unremarkable. No enlarged lymph nodes.Bones/joints: Unremarkable. No acute fracture.Soft tissues: U the nremarkable.IMPRESSION:No significant thoracic findings.Jason Coates MD On 2019 12:57:44; [id number]--Hvcy by: Jason Coates MDDictated Date/time: 01/15/19 12:57Electronically Signed by: Jason Coates MD 01/16/1912:57FINAL REPORT [facility] MAMM BILATERAL MARKUS CAD DIGITAL 2018-12-24 15:39:04 - SCR MAMM BILATERAL MARKUS CAD DIGITALBILATERAL DIGITAL SCREENING MAMMOGRAM 3D/2D WITH CAD: 12/24/2018CLINICAL: Asymptomatic. Digital breast tomosynthesis was performed in addition to routine CC and MLO views. Current mammographic images were evaluated by either a [employer] M-Vu or a [employer] ImageChecker CAD (computer aided detection system). Comparison is made to exams dated 12/20/2017 mammogram, mammogram, and 03/24/2015 mammogram - [facility]-. There are scattered fibroglandular tissues in both breasts. There are benign calcifications in the right breast. There also is a benign calcification in the left breast. No suspicious mass, architectural distortion, malignant type calcification, or lymph node abnormality detected. Breast architecture is stable compared to prior exams.IMPRESSION: BENIGNThere is no mammographic evidence of malignancy. Resume annual screening mammography in one year. Humberto Crocker M.D. ss/penrad:12/24/2018 15:39:04 copy to: Jose reyes [email or web address], [facility], ph: [phone], fax: [phone] Technologist: Emilie PAINTING, [facility]- FWletter sent: BIRADS 1-2 Normal Mammogram BI-RADS: 2 Benign SOFT TISSUE 2018-10-29 14:28:00 RUN DATE: 10/29/18 [place] 1 RUN TIME: 1428 Specimen Inquiry RUN USER: INTERFACE PATIENT: MALIA PACHECO LOC: [facility] U #: [id number] AGE/SX: 73/F ROOM: RE10/27/18LADAN DR: Benjamin Cordero MD : 44 BED: DIS: STATUS: [facility] TLOC: SPEC #: [id number] RECD: 10/27/18 STATUS: LILIBETH PITTS #: [id number] JIM: 10/27/[address] [facility] [address]: Benjamin Cordero MD ENTERED: 10/27/18 SP TYPE: SOFT MASS OTHR DR: Self Referred Orestes Velazquez MD, Paul J MDORDERED: GROSS COPIES TO: Self Referred Orestes Velazquez MD [address] [facility]. [facility] [place] [address] [place] [address] [address] [id number] [email or web address] Benjamin Cordero MD [address] [facility] [address] [place] [id number] PROCEDURES: GROSS (10/29/18411) TISSUES: LEFT LEG - MASS CLINICAL HISTORY COLLECTION DATE: 10/27/18 MASS LEFT LEG COMMENT The tissue was entirely submitted for histologic evaluation. The sections show fibrofatty soft tissue containing several dilated cystic spaces with fibrinoid degeneration of the wall of the cystic area and fibrinoid material within the lumen. Each of these areas is surrounded by a prominent inflammatory response consisting of lymphocytes, plasma cells, foreign body- type giant cells and histiocytes. A small area with prominent peripheral nerve bundles is present suggestive of a traumatic neuroma. CONTINUED ON NEXT PAGE RUN DATE: 10/29/18 [place] - Lab PAGE 2 RUN TIME: 7839 Specimen Inquiry RUN USER: INTERFACE SPEC #: [id number] PATIENT: MALIA PACHECO R #[id number] (Continued) COMMENT (Continued) Because of the prominent inflammatory reaction, stains for fungal organisms and acid fast bacilli were performed. The controls stain appropriately. No organisms are identified with either stain. The histologic features are vaguely suggestive of granuloma formation but the findings are compatible with the stated clinical history of previous sclerotherapy/vein ablation in the area. Features worrisome for malignancy are not identified. Intradepartmental consultation: DMW. FINAL DIAGNOSIS Left leg mass, excision: MULTIPLE DILATED CYSTIC SPACES WITH FIBRINOID DEGENERATION OF BAXTER ASSOCIATED WITH MARKED CHRONIC INFLAMMATION, FOREIGN BODY-TYPE GIANT CELL REACTION, FIBROSIS AND INCREASED HISTIOCYTES, see comment COMPATIBLE WITH STATED CLINICAL HISTORY OF PREVIOUS SCLEROTHERAPY/VEIN ABLATION FOCAL PROLIFERATION OF PERIPHERAL NERVE BUNDLES SUGGESTIVE OF TRAUMATIC NEUROMA NO ORGANISMS IDENTIFIED BY AFB AND GMS STAINS NEGATIVE FOR MALIGNANCY RRB/sm, mike D [id number], [id number] MACROSCOPIC The specimen is received in formalin, labeled with the patient's name, and identified as "mass left leg". The specimen consists of a portion of cxi-bzop-jqaytu soft and focally rubbery tissue measuring 3.0 x 2.0 x 0.8 cm. Serially sectioning reveals a byrnes-yellow to white, soft, rubbery cut surface. The tissue is entirely submitted for histologic evaluation (1A-1C). Ink code: Black, surgical margin of resection. GROSS PERFORMED AT [facility] [address] [place] [address] (p)[phone] MICROSCOPIC All of the stains, including any controls performed, stain appropriately. MICROSCOPIC PERFORMED AT [facility] CONTINUED ON NEXT PAGE RUN DATE: 10/29/18 [place] - Lab PAGE 3 RUN TIME: 1428 Specimen Inquiry RUN USER: INTERFACE SPEC #: [id number] PATIENT: MALIA PACHECO Melodie #[id number] (Continued) MICROSCOPIC (Continued) [address] [place] [address] (p)[phone] PERFORMING SITE Diagnosis performed at: [facility] [address] [place] [address] Signed SIGNATURE ON FILE Jaycob Baez MD 10/29/18 1428 END OF REPORT COMPREHENSIVE METABOLIC PANEL 2018-10-21 09:25:00 Test Item SODIUM (test code = NA) 141 mmol/L 136-145 N POTASSIUM (test code = K) 5.1 mmol/L 3.5-5.1 N CHLORIDE (test code = CL) 103.0 mmol/L 98-107 N CARBON DIOXIDE (test code = CO2) 30.0 mmol/L 21-32 N ANION GAP (test code = GAP) 13.1 10-20 N GLUCOSE (test code = GLU) 92 mg/dL 74-106 N BLOOD UREA NITROGEN (test code = BUN) 20 mg/dL 7-18 H GLOMERULAR FILTRATION RATE (test code = GFR) > 60 mL/min >=60 Estimated GFR by using Modified MDRD formula.Chronic kidney disease is defined as either kidney damageor GFR <60 mL/min/1.73 m2 for >3 months. CREATININE (test code = CREAT) 0.90 mg/dL 0.55-1.02 N Note change in reference range due to change in reagent. BUN/CREATININE RATIO (test code = BUN/CREA) 21.2 10-20 H TOTAL PROTEIN (test code = PROT) 7.9 gram/dL 6.4-8.2 N ALBUMIN (test code = ALB) 4.3 g/dL 3.4-5.0 N GLOBULIN (test code = GLOB) 3.6 gram/dL 2.7-4.2 N ALBUMIN/GLOBULIN RATIO (test code = A/G) 1.2 0.75-1.50 N CALCIUM (test code = CA) 10.0 mg/dL 8.5-10.1 N BILIRUBIN TOTAL (test code = BILT) 0.40 mg/dL 0.0-1.0 N SGOT/AST (test code = AST) 16 IUnit/L 15-37 N SGPT/ALT (test code = ALT) 17 IUnit/L 12-78 N ALKALINE PHOSPHATASE TOTAL (test code = ALKP) 71 IUnit/L 45-117 N Note change in reference range due to change in reagent. COMPREHENSIVE METABOLIC [id number] 09:16:00* Test Item Value Reference Range Interpretation Comments SODIUM (test code = NA) 141 mmol/L 136-145 N POTASSIUM (test code = K) 5.1 mmol/L 3.5-5.1 N CHLORIDE (test code = CL) 103.0 mmol/L 98-107 N CARBON DIOXIDE (test code = CO2) mmol/L 21-32 ANION GAP (test code = GAP) 10-20 GLUCOSE (test code = GLU) mg/dL 74-106 BLOOD UREA NITROGEN (test code = BUN) mg/dL 7-18 GLOMERULAR FILTRATION RATE (test code = GFR) mL/min >=60 CREATININE (test code = CREAT) mg/dL 0.55-1.02 BUN/CREATININE RATIO (test code = BUN/CREA) 10-20 TOTAL PROTEIN (test code = PROT) gram/dL 6.4-8.2 ALBUMIN (test code = ALB) g/dL 3.4-5.0 GLOBULIN (test code = GLOB) gram/dL 2.7-4.2 ALBUMIN/GLOBULIN RATIO (test code = A/G) 0.75-1.50 CALCIUM (test code = CA) mg/dL 8.5-10.1 BILIRUBIN TOTAL (test code = BILT) mg/dL 0.0-1.0 SGOT/AST (test code = AST) IUnit/L 15-37 SGPT/ALT (test code = ALT) IUnit/L 12-78 ALKALINE PHOSPHATASE TOTAL (test code = ALKP) IUnit/L 45-117 CBC W/AUTO [id number] 12:48:00* Test Item Value Reference Range Interpretation Comments WHITE BLOOD CELL (test code = WBC) 4.6 K/mm3 4.5-12.5 N RED BLOOD CELL (test code = RBC) 5.02 mill/mm3 3.7-5.2 N HEMOGLOBIN (test code = HGB) 14.3 gram/dL 11.5-15.5 N HEMATOCRIT (test code = HCT) 45.0 % 36.0-46.0 N MEAN CELL VOLUME (test code = MCV) 89.6 fL 80-98 N MEAN CELL HGB (test code = MCH) 28.5 picogram 27.0-33.0 N MEAN CELL HGB CONCETRATION (test code = MCHC) 31.8 gram/dL 33.0-36. 0 L RED CELL DISTRIBUTION WIDTH (test code = RDW) 13.2 % 11.6-16. 2 N RED CELL DISTRIBUTION WIDTH SD (test code = RDW-SD) 43.5 fL 37 .0-51.0 N PLATELET COUNT (test code = PLT) 228 K/mm3 150-450 N MEAN PLATELET VOLUME (test code = MPV) 11.2 fL 6.7-11.0 H NEUTROPHIL % (test code = NT%) 56.9 % 39.0-69.0 N IMMATURE GRANULOCYTE % (test code = IG%) 0.2 % 0.0-5.0 N LYMPHOCYTE % (test code = LY%) 33.4 % 25.0-55.0 N MONOCYTE % (test code = MO%) 8.0 % 0.0-10.0 N EOSINOPHIL % (test code = EO%) 1.1 % 0.0-5.0 N BASOPHIL % (test code = BA%) 0.4 % 0.0-1.0 N NUCLEATED RBC % (test code = NRBC%) 0.0 % 0-0 N NEUTROPHIL # (test code = NT#) 2.62 K/mm3 1.8-7.7 N IMMATURE GRANULOCYTE # (test code = IG#) 0.01 x10 3/uL 0-0.03 N LYMPHOCYTE # (test code = LY#) 1.54 K/mm3 1.0-5.0 N MONOCYTE # (test code = MO#) 0.37 K/mm3 0-0.8 N EOSINOPHIL # (test code = EO#) 0.05 K/mm3 0.0-0.5 N BASOPHIL # (test code = BA#) 0.02 K/mm3 0.0-0.2 N NUCLEATED RBC # (test code = NRBC#) 0.00 K/mm3 0.0-0.1 N - XR CHEST 2 [id number] 12:14:00 FAX: Orestes Azul MD [phone] [place]: O St: PRE FAX: Hemanth Mckenzie [phone] FAX: Benjamin Hanson [phone] Name: MALIA PACHECO [facility] : 1945 Age/S: 73/F [address] [facility] Unit #: [id number] Loc: [place] [address] Phys: Benjamin Cordero MD Acct: [id number] Dis Date: Status: PRE SDC PH ONE #: [id number] Exam Date: 10/19/2018 1147 FAX #: [phone] Reason: PRE-OP EXAMS: CPT CODE: [id number] XR CHEST 2 V 38305 HISTORY: Preop . COMPARISON: October 12, 2015. AP and lateral view o f the chest: No acute infiltrates, effusion or congestion. Cardiac and the mediastinal silhouette are normal. IMPRESSION: No acute infiltrates, effusion or congestion. Electr onically Signed by Garcia Garzon on 10/19/2018 at 1214 Reported and signed by: Franck Garzon M.D. CC: Orestes Yousif; Hemanth Robison MD; Benjamin Cordero MD Technologist: Jaci No RT(Melodie) Trnscrd Date/Time/By: 10/19/2018 (4207) : By: [email or web address] Orig Print D/T: S: 10/19/2018 (7655) PAGE 1 Signed Report LUMBAR 3 [id number] 23:20:00 [facility] [address] [address] Patient Name: MALIA PACHECO MR #: [id number] : 1945 Age/Sex: 73/F Req #: [id number] Adm Physician: Ordered by: SHERRON FREITAS MD Report #: [id number] Location: ER Room/Bed: Procedure: [id number] DX/LUMBAR 3 VIEW Exam Date: Exam Time: REPORT STATUS: Signed Lumbar Spine Ra diographs: 3 views HISTORY: Pain COMPARISON: CT dated 08/04/2018 DISCUSSION: Some of the osseous structures are partially obscured by stool an d bowel gas. There are five non-rib bearing lumbar vertebral bodies. No d isplaced fracture or compression deformity is identified. Again seen L5 pars d efects with L5-S1 spondylolisthesis and posterior wedging of L5 vertebral body . L5-S1 disc space narrowing. Otherwise disc spaces are preserved. IMP RESSION: No acute radiographic abnormality. Signed by: Dr. Zoran Chang MD on 08/17/2018 11:23 PM Dictated By: ZORAN CHANG MD Electronically S igned By: ZORAN CHANG MD on 08/17/182322 Transcribed By: ANKIT on 08/17/188 COPY TO: SHERRON FREITAS MD Urine [id number] 22:39:00* Test Item Value Reference Range Interpretation Comments Urine WBC (test code = 5821-4) 0-5 0-5 [facility] [id number] 22:39:00* Test Item Value Reference Range Interpretation Comments Urine RBC (test code = 90512-8) 6-10 0-5 [facility] [id number] 22:39:00* Test Item Value Reference Range Interpretation Comments Urine Bacteria (test code = 43855-4) FEW NONE [facility] Epithelial [id number] 22:39:00 * Test Item Value Reference Range Interpretation Comments Urine Epithelial Cells (test code = 61918-7) MODERATE NONE [facility] [id number] 22:13:00* Test Item Value Reference Range Interpretation Comments Urine Color (test code = 5778-6) YELLOW YELLOW [facility] [id number] 22:13:00* Test Item Value Reference Range Interpretation Comments Urine Clarity (test code = 10481-6) CLEAR CLEAR [facility] Specific [id number] 22:13:00 * Test Item Value Reference Range Interpretation Comments Urine Specific [place] (test code = 5811-5) 1.010 1.010-1.02 5 [facility] [id number] 22:13:00* Test Item Value Reference Range Interpretation Comments Urine pH (test code = 68600-5) 5.5 5-7 [facility] Leukocyte [id number] 22:13:00* Test Item Value Reference Range Interpretation Comments Urine Leukocyte Esterase (test code = 98613-8) NEGATIVE NEGATIV E [facility] [id number] 22:13:00* Test Item Value Reference Range Interpretation Comments Urine Nitrite (test code = 76924-1) NEGATIVE NEGATIVE [facility] [id number] 22:13:00* Test Item Value Reference Range Interpretation Comments Urine Protein (test code = 84113-9) NEGATIVE NEGATIVE [facility] Glucose (UA)2018-08-17 22:13:00* Test Item Value Reference Range Interpretation Comments Urine Glucose (UA) (test code = 97255-7) NEGATIVE NEGATIVE [facility] [id number] 22:13:00* Test Item Value Reference Range Interpretation Comments Urine Ketones (test code = 69119-1) NEGATIVE NEGATIVE [facility] [id number] 22:13:00* Test Item Value Reference Range Interpretation Comments Urine Urobilinogen (test code = 60106-7) 0.2 0.2-1 [facility] [id number] 22:13:00* Test Item Value Reference Range Interpretation Comments Urine Bilirubin (test code = 1977-8) NEGATIVE NEGATIVE [facility] [id number] 22:13:00* Test Item Value Reference Range Interpretation Comments Urine Blood (test code = 03481-3) 1+ NEGATIVE [facility] Hospital[facility] [id number] 21:23:00* Test Item Value Reference Range Interpretation Comments Blood Culture (test code = 23769115) NO GROWTH AFTER 5 DAYS, FINAL REPORT [facility] Hospital[facility]esium [id number] 12:23:00* Test Item Value Reference Range Interpretation Comments Magnesium Level (test code = 90808-8) 1.8 1.3-2.1 [facility] [id number] 12:23:00* Test Item Value Reference Range Interpretation Comments Magnesium Level (test code = 77631-3) 1.8 1.3-2.1 [facility] HospitalClostridium Difficile Toxin A & B 2018-08-08 11:29:00* Test Item Value Reference Range Interpretation Comments Clostridium Difficile Toxin A & B (test code = 921858348) NEGATIVE NEGATIVE Testing on stool aspirate specimens is outside state archivist claims since specime n type not validated on this assay.[facility] Clostridium Difficile Toxin A & [id number] 11:29:00* Test Item Value Reference Range Interpretation Comments Clostridium Difficile Toxin A & B (test code = 077636710) NEGATIVE NEGATIVE Testing on stool aspirate specimens is outside state archivist claims since specime n type not validated on this assay.[facility] Rljpv5843-75-14 05:28:00* Test Item Value Reference Range Interpretation Comments Sodium Level (test code = 2951-2) 140 136-145 [facility]Potassium Gckne8779-71-25 05:28:00* Test Item Value Reference Range Interpretation Comments Potassium Level (test code = 2823-3) 3.6 3.5-5.1 [facility] HospitalChloride Ezmgl5474-48-04 05:28:00* Test Item Value Reference Range Interpretation Comments Chloride Level (test code = 2075-0) 108 98-107 H [facility] HospitalCarbon Dioxide Hjalp8804-16-87 05:28:00* Test Item Value Reference Range Interpretation Comments Carbon Dioxide Level (test code = 2028-9) 27 22-29 [facility] HospitalAnion Gep4366-07-94 05:28:00* Test Item Value Reference Range Interpretation Comments Anion Gap (test code = 86146-1) 8.6 8-16 [facility] HospitalBlood Urea Tmtokkor1972-67-14 05:28:00* Test Item Value Reference Range Interpretation Comments Blood Urea Nitrogen (test code = 3094-0) 7 7-26 [facility] HospitalCreatinine2019-06-08 05:28:00* Test Item Value Reference Range Interpretation Comments Creatinine (test code = 2160-0) 0.82 0.57-1.11 [facility] HospitalBUN/Creatinine Gfdwy6759-98-33 05:28:00* Test Item Value Reference Range Interpretation Comments BUN/Creatinine Ratio (test code = 3097-3) 9 6-25 [facility] HospitalEstimat Glomerular Filtration Rate 2018-08-08 05:28:00* Test Item Value Reference Range Interpretation Comments Estimat Glomerular Filtration Rate (test code = 105872754) > 60 >60 Ranges were taken from the National Kidney Disease Education Program and the [facility] literature.Reference ranges:60 or greater: Ntwevy34-66 ( for 3 consecutive months): Chronic kidney disease 15 or less: Kidney failureHouston [facility] HospitalGlucose Fzeoq4570-18-76 05:28:00* Test Item Value Reference Range Interpretation Comments Glucose Level (test code = UMI5851) 89 74-118 [facility] HospitalCalcium Rgscd2911-79-56 05:28:00* Test Item Value Reference Range Interpretation Comments Calcium Level (test code = 78651-8) 8.6 8.4-10.2 [facility] Xvmbf4734-10-22 05:28:00* Test Item Value Reference Range Interpretation Comments Sodium Level (test code = 2951-2) 140 136-145 [facility] HospitalPotassium Ofcir3222-93-36 05:28:00* Test Item Value Reference Range Interpretation Comments Potassium Level (test code = 2823-3) 3.6 3.5-5.1 [facility] HospitalChloride Ebtyt6638-64-39 05:28:00* Test Item Value Reference Range Interpretation Comments Chloride Level (test code = 2075-0) 108 98-107 H [facility] HospitalCarbon Dioxide Iajxp0255-73-77 05:28:00* Test Item Value Reference Range Interpretation Comments Carbon Dioxide Level (test code = 2028-9) 27 22-29 [facility] HospitalAnion Nbx2525-49-13 05:28:00* Test Item Value Reference Range Interpretation Comments Anion Gap (test code = 16165-6) 8.6 8-16 [facility] HospitalBlood Urea Mgtntqzj7015-23-44 05:28:00* Test Item Value Reference Range Interpretation Comments Blood Urea Nitrogen (test code = 3094-0) 7 7-26 [facility] HospitalCreatinine2019-06-08 05:28:00* Test Item Value Reference Range Interpretation Comments Creatinine (test code = 2160-0) 0.82 0.57-1.11 [facility] HospitalBUN/Creatinine Byanw0729-32-77 05:28:00* Test Item Value Reference Range Interpretation Comments BUN/Creatinine Ratio (test code = 3097-3) 9 6-25 [facility] HospitalEstimat Glomerular Filtration Rate 2018-08-08 05:28:00* Test Item Value Reference Range Interpretation Comments Estimat Glomerular Filtration Rate (test code = 599037134) > 60 >60 Ranges were taken from the National Kidney Disease Education Program and the [facility] Kid[facility] Foundation literature.Reference ranges:60 or greater: Fsodjm78-87 ( for 3 consecutive months): Chronic kidney disease 15 or less: Kidney failureHouston [facility] Clear Lake HospitalGlucose Uoquv7746-24-83 05:28:00* Test Item Value Reference Range Interpretation Comments Glucose Level (test code = CDE2566) 89 74-118 [facility] HospitalCalcium Vggwi2689-29-36 05:28:00* Test Item Value Reference Range Interpretation Comments Calcium Level (test code = 04724-7) 8.6 8.4-10.2 [facility] HospitalWhite Blood Okxzf6976-34-83 05:11:00* Test Item Value Reference Range Interpretation Comments White Blood Count (test code = 6690-2) 3.98 4.8-10.8 L [facility] HospitalRed Blood Nhccg3657-32-49 05:11:00* Test Item Value Reference Range Interpretation Comments Red Blood Count (test code = 789-8) 4.11 3.6-5.1 [facility] HospitalHemoglobin2019-06-08 05:11:00* Test Item Value Reference Range Interpretation Comments Hemoglobin (test code = 72835-7) 12.1 12.0-16.0 [facility] HospitalHematocrit2019-06-08 05:11:00* Test Item Value Reference Range Interpretation Comments Hematocrit (test code = 4544-3) 36.2 34.2-44.1 [facility] HospitalMean Corpuscular Cfvwps4686-97-50 05:11:00* Test Item Value Reference Range Interpretation Comments Mean Corpuscular Volume (test code = 787-2) 88.1 81-99 [facility] HospitalMean Corpuscular Lvqbihmbmk6239-23-20 05:11:00* Test Item Value Reference Range Interpretation Comments Mean Corpuscular Hemoglobin (test code = 785-6) 29.4 28-32 [facility] HospitalMean Corpuscular Hemoglobin Concent 2018-08-08 05:11:00* Test Item Value Reference Range Interpretation Comments Mean Corpuscular Hemoglobin Concent (test code = 786-4) 33.4 31-35 [facility] HospitalRed Cell Distribution Hjnso8880-12-63 05:11:00* Test Item Value Reference Range Interpretation Comments Red Cell Distribution Width (test code = 48112-8) 13.2 11.7 -14.4 [facility] HospitalPlatelet Qfacc4783-27-25 05:11:00* Test Item Value Reference Range Interpretation Comments Platelet Count (test code = 777-3) 175 140-360 [facility] HospitalNeutrophils (%) (Auto)2018-08-08 05:11:00 * Test Item Value Reference Range Interpretation Comments Neutrophils (%) (Auto) (test code = 77039-1) 54.0 38.7-80.0 [facility] HospitalLymphocytes (%) (Auto)2018-08-08 05:11:00 * Test Item Value Reference Range Interpretation Comments Lymphocytes (%) (Auto) (test code = 736-9) 34.2 18.0-39.1 [facility] HospitalMonocytes (%) (Auto)2018-08-08 05:11:00* Test Item Value Reference Range Interpretation Comments Monocytes (%) (Auto) (test code = 5905-5) 9.0 4.4-11.3 [facility] HospitalEosinophils (%) (Auto)2018-08-08 05:11:00 * Test Item Value Reference Range Interpretation Comments Eosinophils (%) (Auto) (test code = 713-8) 2.5 0.0-6.0 [facility] HospitalBasophils (%) (Auto)2018-08-08 05:11:00* Test Item Value Reference Range Interpretation Comments Basophils (%) (Auto) (test code = 706-2) 0.3 0.0-1.0 [facility] HospitalIM GRANULOCYTES %2018-08-08 05:11:00* Test Item Value Reference Range Interpretation Comments IM GRANULOCYTES % (test code = IM GRANULOCYTES %) 0.0 0.0- 1.0 [facility] HospitalNeutrophils # (Auto)2018-08-08 05:11:00* Test Item Value Reference Range Interpretation Comments Neutrophils # (Auto) (test code = 751-8) 2.2 2.1-6.9 [facility] HospitalLymphocytes # (Auto)2018-08-08 05:11:00* Test Item Value Reference Range Interpretation Comments Lymphocytes # (Auto) (test code = 27525-9) 1.4 1.0-3.2 [facility] HospitalMonocytes # (Auto)2018-08-08 05:11:00* Test Item Value Reference Range Interpretation Comments Monocytes # (Auto) (test code = 742-7) 0.4 0.2-0.8 [facility] HospitalEosinophils # (Auto)2018-08-08 05:11:00* Test Item Value Reference Range Interpretation Comments Eosinophils # (Auto) (test code = 711-2) 0.1 0.0-0.4 [facility] HospitalBasophils # (Auto)2018-08-08 05:11:00* Test Item Value Reference Range Interpretation Comments Basophils # (Auto) (test code = 704-7) 0.0 0.0-0.1 [facility] HospitalAbsolute Immature Granulocyte (auto 2018-08-08 05:11:00* Test Item Value Reference Range Interpretation Comments Absolute Immature Granulocyte (auto (graham t code = Absolute Immature Granulocyte (auto) 0 0-0.1 [facility] HospitalWhite Blood Zsxqs7025-06-69 05:11:00* Test Item Value Reference Range Interpretation Comments White Blood Count (test code = 6690-2) 3.98 4.8-10.8 L [facility] HospitalRed Blood Prdbq6456-99-98 05:11:00* Test Item Value Reference Range Interpretation Comments Red Blood Count (test code = 789-8) 4.11 3.6-5.1 [facility] HospitalHemoglobin2019-06-08 05:11:00* Test Item Value Reference Range Interpretation Comments Hemoglobin (test code = 97416-9) 12.1 12.0-16.0 [facility] HospitalHematocrit2019-06-08 05:11:00* Test Item Value Reference Range Interpretation Comments Hematocrit (test code = 4544-3) 36.2 34.2-44.1 [facility] HospitalMean Corpuscular Igxjyn5548-21-45 05:11:00* Test Item Value Reference Range Interpretation Comments Mean Corpuscular Volume (test code = 787-2) 88.1 81-99 [facility] HospitalMean Corpuscular Jmqbclglzn9964-37-39 05:11:00* Test Item Value Reference Range Interpretation Comments Mean Corpuscular Hemoglobin (test code = 785-6) 29.4 28-32 [facility] HospitalMean Corpuscular Hemoglobin Concent 2018-08-08 05:11:00* Test Item Value Reference Range Interpretation Comments Mean Corpuscular Hemoglobin Concent (test code = 786-4) 33.4 31-35 [facility] HospitalRed Cell Distribution Gcncm8892-34-17 05:11:00* Test Item Value Reference Range Interpretation Comments Red Cell Distribution Width (test code = 59625-9) 13.2 11.7 -14.4 [facility] HospitalPlatelet Utzig5030-18-95 05:11:00* Test Item Value Reference Range Interpretation Comments Platelet Count (test code = 777-3) 175 140-360 [facility] HospitalNeutrophils (%) (Auto)2018-08-08 05:11:00 * Test Item Value Reference Range Interpretation Comments Neutrophils (%) (Auto) (test code = 96890-0) 54.0 38.7-80.0 [facility] HospitalLymphocytes (%) (Auto)2018-08-08 05:11:00 * Test Item Value Reference Range Interpretation Comments Lymphocytes (%) (Auto) (test code = 736-9) 34.2 18.0-39.1 [facility] HospitalMonocytes (%) (Auto)2018-08-08 05:11:00* Test Item Value Reference Range Interpretation Comments Monocytes (%) (Auto) (test code = 5905-5) 9.0 4.4-11.3 [facility] HospitalEosinophils (%) (Auto)2018-08-08 05:11:00 * Test Item Value Reference Range Interpretation Comments Eosinophils (%) (Auto) (test code = 713-8) 2.5 0.0-6.0 [facility] HospitalBasophils (%) (Auto)2018-08-08 05:11:00* Test Item Value Reference Range Interpretation Comments Basophils (%) (Auto) (test code = 706-2) 0.3 0.0-1.0 [facility] HospitalIM GRANULOCYTES %2018-08-08 05:11:00* Test Item Value Reference Range Interpretation Comments IM GRANULOCYTES % (test code = IM GRANULOCYTES %) 0.0 0.0- 1.0 [facility] HospitalNeutrophils # (Auto)2018-08-08 05:11:00* Test Item Value Reference Range Interpretation Comments Neutrophils # (Auto) (test code = 751-8) 2.2 2.1-6.9 [facility] HospitalLymphocytes # (Auto)2018-08-08 05:11:00* Test Item Value Reference Range Interpretation Comments Lymphocytes # (Auto) (test code = 55787-2) 1.4 1.0-3.2 [facility] HospitalMonocytes # (Auto)2018-08-08 05:11:00* Test Item Value Reference Range Interpretation Comments Monocytes # (Auto) (test code = 742-7) 0.4 0.2-0.8 [facility] HospitalEosinophils # (Auto)2018-08-08 05:11:00* Test Item Value Reference Range Interpretation Comments Eosinophils # (Auto) (test code = 711-2) 0.1 0.0-0.4 [facility] HospitalBasophils # (Auto)2018-08-08 05:11:00* Test Item Value Reference Range Interpretation Comments Basophils # (Auto) (test code = 704-7) 0.0 0.0-0.1 [facility] HospitalAbsolute Immature Granulocyte (auto 2018-08-08 05:11:00* Test Item Value Reference Range Interpretation Comments Absolute Immature Granulocyte (auto (graham t code = Absolute Immature Granulocyte (auto) 0 0-0.1 [facility] HospitalBlood Oaqfodt6960-07-80 21:23:00* Test Item Value Reference Range Interpretation Comments Blood Culture (test code = 08686740) NO GROWTH AFTER 72 HOURS [facility] HospitalPhosphorus Azmbz0420-57-71 08:18:00* Test Item Value Reference Range Interpretation Comments Phosphorus Level (test code = TEN2767) 2.3 2.3-4.7 [facility] HospitalPhosphorus Rpbbf5239-16-83 08:18:00* Test Item Value Reference Range Interpretation Comments Phosphorus Level (test code = TDV4838) 2.3 2.3-4.7 [facility] Hospitalside Pikeqkm2523-08-56 20:02:00* Test Item Value Reference Range Interpretation Comments Bedside Glucose (test code = 99282-5) 82 70-120 Meter ID: [id number] 2018-08-05 20:02:00* Test Item Value Reference Range Interpretation Comments Bedside Glucose (test code = 41210-6) 82 70-120 Meter ID: [id number] Specialty Hospitals of AmericaTotal Bilirubin 2018-08-05 06:45:00* Test Item Value Reference Range Interpretation Comments Total Bilirubin (test code = 1975-2) 0.9 0.2-1.2 [facility] HospitalAspartate Amino Transf (AST/SGOT) 2018-08-05 06:45:00* Test Item Value Reference Range Interpretation Comments Aspartate Amino Transf (AST/SGOT) (test code = Aspartate Amino Transf (AST/SGOT)) 14 5-34 [facility] HospitalAlanine Aminotransferase (ALT/SGPT) 2018-08-05 06:45:00* Test Item Value Reference Range Interpretation Comments Alanine Aminotransferase (ALT/SGPT) (test code = 1742-6) 13 0-55 [facility] HospitalTotal Wmwtipc2113-05-43 06:45:00* Test Item Value Reference Range Interpretation Comments Total Protein (test code = 2885-2) 6.5 6.5-8.1 [facility] HospitalAlbumin2019-06-05 06:45:00* Test Item Value Reference Range Interpretation Comments Albumin (test code = 1751-7) 3.5 3.5-5.0 [facility] HospitalGlobulin2019-06-05 06:45:00* Test Item Value Reference Range Interpretation Comments Globulin (test code = 95672-3) 3.0 2.3-3.5 [facility] HospitalAlbumin/Globulin Dzdha1058-91-41 06:45:00 * Test Item Value Reference Range Interpretation Comments Albumin/Globulin Ratio (test code = 1759-0) 1.2 0.8-2.0 [facility] HospitalAlkaline Bjqjhswakta5375-41-96 06:45:00* Test Item Value Reference Range Interpretation Comments Alkaline Phosphatase (test code = 6768-6) 50 40-150 [facility] HospitalTotal Inlzulogn9442-03-39 06:45:00* Test Item Value Reference Range Interpretation Comments Total Bilirubin (test code = 1975-2) 0.9 0.2-1.2 [facility] HospitalAspartate Amino Transf (AST/SGOT) 2018-08-05 06:45:00* Test Item Value Reference Range Interpretation Comments Aspartate Amino Transf (AST/SGOT) (test code = Aspartate Amino Transf (AST/SGOT)) 14 5-34 [facility] HospitalAlanine Aminotransferase (ALT/SGPT) 2018-08-05 06:45:00* Test Item Value Reference Range Interpretation Comments Alanine Aminotransferase (ALT/SGPT) (test code = 1742-6) 13 0-55 [facility] HospitalTotal Lbhzrau8733-14-28 06:45:00* Test Item Value Reference Range Interpretation Comments Total Protein (test code = 2885-2) 6.5 6.5-8.1 [facility] HospitalAlbumin2019-06-05 06:45:00* Test Item Value Reference Range Interpretation Comments Albumin (test code = 1751-7) 3.5 3.5-5.0 [facility] HospitalGlobulin2019-06-05 06:45:00* Test Item Value Reference Range Interpretation Comments Globulin (test code = 47307-0) 3.0 2.3-3.5 [facility] HospitalAlbumin/Globulin Aadup8514-37-29 06:45:00 * Test Item Value Reference Range Interpretation Comments Albumin/Globulin Ratio (test code = 1759-0) 1.2 0.8-2.0 [facility] HospitalAlkaline Cuxwoxdjkat4653-64-79 06:45:00* Test Item Value Reference Range Interpretation Comments Alkaline Phosphatase (test code = 6768-6) 50 40-150 [facility] HospitalCT ABDOMEN/PELVIS E8339-69-50 22:38:00 [facility] [address] [address] Patient Name: MALIA PACHECO MR #: [id number] : 1944 Age/Sex: 73/F Req #: [id number] Adm Physician: Ordered by: SHERRON FREITAS MD Report #: [id number] Location: ER Room/Bed: Procedure: 603 -29 CT/CT ABDOMEN/PELVIS W Exam Date: 08/04/18 Juan David weston Time: 2214 REPORT STATUS: Signed EXAM: CT Abdomen and Pelvis WITH contrast INDICATION: FEVER, LOW ER ABD PAIN, [id number] Y COMPARISON: None. TECHNIQUE: Abdomen and pelvis were scanned utilizing a multidetector helical scanner from the jen g base to the pubic symphysis after administration of IV contrast. Coronal and sagittal reformations were obtained. Dose modulation, iterative reconstructio n, and/or weight based adjustment of the mA/kV was utilized to reduce the radi ation dose to as low as reasonably achievable. Routine protocol was performed. Scan was performed when during portal venous phase. IV CONTRAST: 1 50 mL of Omnipaque 300 ORAL CONTRAST: Water COMPLICATION S: None RADIATION DOSE: Total DLP: 413.53 mGy*cm Estimated ef fective dose: (DLP x 0.015 x size factor) mSv CTDIvol has been reviewed. It is below the limits set by the Radiation Protocol Committee (RPC). FIN DINGS: LINES and TUBES: Right nephroureteral stent. LOWER THORAX: Pun ctate left lower lobe nodule (series 2, image 12). Additional punctate right m iddle and lower lobe nodules. Mild dependent atelectasis. HEPATOBILIARY: No focal hepatic lesions. No biliary ductal dilation. GALLBLADDER: No r adio-opaque stones or sludge. No wall thickening. SPLEEN: No splenomegaly. PANCREAS: No focal masses or ductal dilatation. ADRENALS: No adren al nodules KIDNEYS/URETERS: Kidneys enhance symmetrically. No hydronep hrosis. No cystic or solid mass lesions. No stones. Right nephroureteral sten t in place. GI TRACT: No abnormal distention, wall thickening, or evidence of bowel obstruction. Colonic diverticulosis with fat stranding adjacent to c olon in left lower quadrant, representing diverticulitis. Questionable punctat e foci of extraluminal air (series 2, image 65). Appendix is normal. PEL STEPHANIE ORGANS/BLADDER: Unremarkable. LYMPH NODES: No lymphadenopathy. VES SELS: Unremarkable. PERITONEUM / RETROPERITONEUM: No free air or fluid. BONES: Bilateral L5 pars defects with L5-S1 grade 1 spondylolisthesis. SO FT TISSUES: Small fat-containing right inguinal hernia. IMPRESS ION: 1. Colonic diverticulosis with evidence of diverticulitis in left lower quadrant. Suspected microperforation. No evidence of abscess formation. Signed by: Dr. Zoran Chang MD on 08/04/2018 10:47 PM Dictated By: ZORAN CHANG MD 46 Transcr ibed By: ANKIT on 08/04/182246 COPY TO: SHERRON FREITAS MD Lactic Acid Aynmb9597-25-63 21:47:00* Test Item Value Reference Range Interpretation Comments Lactic Acid Level (test code = Lactic Acid Level) 9.8 4.5- 19.8 [facility] HospitalLactic Acid Zrdtv7138-84-15 21:47:00* Test Item Value Reference Range Interpretation Comments Lactic Acid Level (test code = Lactic Acid Level) 9.8 4.5- 19.8 [facility] HospitalProthrombin Keaw2315-70-04 21:46:00* Test Item Value Reference Range Interpretation Comments Prothrombin Time (test code = 5902-2) 12.1 11.9-14.5 [facility] HospitalProthromb Time International Ratio 2018-08-04 21:46:00* Test Item Value Reference Range Interpretation Comments Prothromb Time International Ratio (test code = 6301-6) 0.85 Oral Anticoagulant Therapy INR Values:1. Low Intensity Therapy 1.5 - 2.02 . Moderate Intensity Therapy 2.0 - 3.03. High Intensity Therapy(1) 2.5 - 3. 54. High Intensity Therapy(2) 3.0 - 4.05. Panic Value INR > 5.0 [facility] HospitalActivated Partial Thromboplast Time 2018-08-04 21:46:00* Test Item Value Reference Range Interpretation Comments Activated Partial Thromboplast Time (test code = 24602-4) 29.0 23.8-35.5 [facility] HospitalUrine VWI1538-18-80 21:46:00* Test Item Value Reference Range Interpretation Comments Urine WBC (test code = 5821-4) 11-20 0-5 H [facility] HospitalUrine PSD9055-20-64 21:46:00* Test Item Value Reference Range Interpretation Comments Urine RBC (test code = 68650-5) 11-20 0-5 H [facility] HospitalUrine Lvnkjphz8649-58-77 21:46:00* Test Item Value Reference Range Interpretation Comments Urine Bacteria (test code = 40948-5) MANY NONE H [facility] HospitalUrine Epithelial Ammho7729-10-22 21:46:00 * Test Item Value Reference Range Interpretation Comments Urine Epithelial Cells (test code = 81554-0) MODERATE NONE [facility] HospitalProthrombin Ymyg3076-45-83 21:46:00* Test Item Value Reference Range Interpretation Comments Prothrombin Time (test code = 5902-2) 12.1 11.9-14.5 [facility] HospitalProthromb Time International Ratio 2018-08-04 21:46:00* Test Item Value Reference Range Interpretation Comments Prothromb Time International Ratio (test code = 6301-6) 0.85 Oral Anticoagulant Therapy INR Values:1. Low Intensity Therapy 1.5 - 2.02 . Moderate Intensity Therapy 2.0 - 3.03. High Intensity Therapy(1) 2.5 - 3. 54. High Intensity Therapy(2) 3.0 - 4.05. Panic Value INR > 5.0 [facility] HospitalActivated Partial Thromboplast Time 2018-08-04 21:46:00* Test Item Value Reference Range Interpretation Comments Activated Partial Thromboplast Time (test code = 48724-9) 29.0 23.8-35.5 [facility] HospitalUrine Cvdfu6293-41-96 21:35:00* Test Item Value Reference Range Interpretation Comments Urine Color (test code = 5778-6) YELLOW YELLOW [facility] HospitalUrine Wdcwzmy7698-17-91 21:35:00* Test Item Value Reference Range Interpretation Comments Urine Clarity (test code = 13996-4) CLEAR CLEAR [facility] HospitalUrine Specific Dwuliph4409-51-01 21:35:00 * Test Item Value Reference Range Interpretation Comments Urine Specific [place] (test code = 5811-5) 1.015 1.010-1.02 5 [facility] HospitalUrine iR9037-49-72 21:35:00* Test Item Value Reference Range Interpretation Comments Urine pH (test code = 88569-8) 7.5 5-7 [facility] HospitalUrine Leukocyte Nidqfjoc3520-26-58 21:35:00* Test Item Value Reference Range Interpretation Comments Urine Leukocyte Esterase (test code = 56883-7) TRACE NEGATIV E H [facility] HospitalUrine Uyboele9790-01-73 21:35:00* Test Item Value Reference Range Interpretation Comments Urine Nitrite (test code = 04241-4) NEGATIVE NEGATIVE [facility] HospitalUrine Ycmdmlk8957-93-06 21:35:00* Test Item Value Reference Range Interpretation Comments Urine Protein (test code = 61310-0) NEGATIVE NEGATIVE [facility] HospitalUrine Glucose (UA)2018-08-04 21:35:00* Test Item Value Reference Range Interpretation Comments Urine Glucose (UA) (test code = 38543-3) NEGATIVE NEGATIVE [facility] HospitalUrine Fmxtesq3569-13-58 21:35:00* Test Item Value Reference Range Interpretation Comments Urine Ketones (test code = 18683-3) NEGATIVE NEGATIVE [facility] HospitalUrine Uzexhtvzcffs6909-99-07 21:35:00* Test Item Value Reference Range Interpretation Comments Urine Urobilinogen (test code = 47502-2) 0.2 0.2-1 [facility] [id number] 21:35:00* Test Item Value Reference Range Interpretation Comments Urine Bilirubin (test code = 1977-8) NEGATIVE NEGATIVE [facility] [id number] 21:35:00* Test Item Value Reference Range Interpretation Comments Urine Blood (test code = 82922-2) MODERATE NEGATIVE [facility]2018-08-04 21:05:00 [place] [address] Patient Name: MALIA PACHECO MR #: [id number] : 1945 Age/Sex: 73/F Req #: [id number] Adm Physician: Ordered by: SHERRON FREITAS MD Report #: [id number] Location: ER Room/Bed: Procedure: [id number] DX/CHEST SINGLE (PORTABLE) Exam Date: 08/04/18 Exam Time: 2043 REPORT STATUS: Sig kyra EXAMINATION: CHEST SINGLE (PORTABLE) INDICATION: FEVER [id number] COMPARISON: 06/25/2018 FINDINGS: AP vi ew TUBES and LINES: None. LUNGS: Limited by body habitus and low lung volumes. Central vascular congestion. PLEURA: No pleural eff usion or pneumothorax. HEART AND MEDIASTINUM: The cardiomediastinal silhou ette is enlarged on this AP view. BONES AND SOFT TISSUES: No acute o sseous lesion. Soft tissues are unremarkable. UPPER ABDOMEN: No free air under the diaphragm. IMPRESSION: Enlarged cardiomediastinal silhoue tte and central vascular congestion, accentuated by low lung volumes and techn ique. No definite focal consolidation. Signed by: Dr. Zoran Chang MD on 08/04/2018 9:07 PM Dictated By: ZORAN CHANG MD 06 Transcribed By: ANKIT on 08/04/182106 COPY TO: SHERRON FREITAS MD CHEST 2 [id number] 11:43:00 [place] [address] Patient Name: MALIA PACHECO MR #: [id number] : 1945 Age/Sex: 73/F Req #: [id number] Adm Physician: Ordered by: REENA GUEVARA MD Report #: [id number] Location: OR Room/Bed: Procedure: [id number] DX/CHEST 2 VIEWS Exam Date: 06/25/18 Exam Time: 1105 REPORT STATUS: Signed EXAMINATI ON: CHEST 2 VIEWS INDICATION: Pre-op. COMPARISON: None FINDINGS: TUBES and LINES: None. LUNGS: Lungs are well inflated. Jen gs are clear. There is no evidence of pneumonia or pulmonary edema. PLE URA: No pleural effusion or pneumothorax. HEART AND MEDIASTINUM: The car diomediastinal silhouette is unremarkable. BONES AND SOFT TISSUES: No acute osseous abnormality. UPPER ABDOMEN: No free air under the diaphragm. IMPRESSION: No acute radiographic abnormality. Signed by: Dr. Karen Moreira MD on 06/25/2018 11:46 AM Dictated By: FRANCA MOREIRA MD [facility] Signed By: FRANCA MOREIRA MD on 06/25/18 1146 Transcribed By: ANKIT on 06/02 07/19 1146 COPY TO: REENA GUEVARA MD
--- OUTSIDE RECORDS SUMMARY | 2019-08-11 23:59 | XMS REPORT | Summary of Care ---
Author Author MALIA BARNETT M.D. Organization Unknown Address [facility] Phone Unavailable Care Team Providers Care Audio Visual Arts Director Name Role Phone [facility] Unavailable FaribavaSHERRON Almazan MD Unavailable Unavailable Unavailable Unavailable Functional Status Name Dates Details Functional status health issues are not documented Status: Name Dates Details Cognitive status health issues are not d ocumented Status: Problems Name Dates Details Arthritis (716.90, M19.90) Status: Active Asthma (493.90, J45.909) Status: Active Cataract (366.9, H26.9) Status: Active Gastritis (535.50, K29.70) Status: Active Unspecified glaucoma (365.9, H40.9) Status: Active Thyroid disease (246.9, E07.9) Status: Active Vocal cord paralysis (478.30, J38.00) Status: Active Chronic GERD (530.81, K21.9) Status: Active Deviated nasal septum (470, J34.2) Status: Active Medications Name Dates Details Esomeprazole Magnesium 20 MG Oral Capsul e Delayed Release M.A. Active Vitamin D3 125 MCG (5000 UT) Oral Tablet * Refills: 0 M.A. Active Levothyroxine Sodium TABS * Refills: 0 M.A. Active Linzess CAPS * Refills: 0 M.A. Active ProAir HFA AERS * Refills: 0 M.A. Active Melatonin 3 MG Oral Tablet * Refills: 0 M.A. Active Aspirin 81 MG TABS * Refills: 0 M.A. Active Allergies and Adverse Reactions Name Dates Details No Known Allergies (Allergy) Status: Act kathy Procedures Procedure Dates Details CT Chest w contrast 81487 Date: 12-Jan-2019 History of Section Completed History of Hernia Repair Completed History of Back Surgery Completed Immunization Name Dates Details Immunizations not documented Family History Name Dates Details No pertinent family history (V49.89, Z78 .9) Comments: Paternal Relatives Status: Active Social History Name Dates Details - Status: Name Dates Details Never smoker Vital Signs Date Test Result Details 70-Qjq-071176:26 Weight 162.25 lb Status: Results Date Description Value Details 59-Pmp-72691:08 CT Chest w contrast [address] SEE NOTES Comments: Ra diation Dose CTDIVOL = 0 (mGy): [...] thoracic findings.Jason Coates MD On 2019 12:57:44; [id number] by: Jason Coates MDDictated Date/time: 01/15/19 12:57Electronically Signed by: Jason Coates MD 01/16/1912:57FINAL REPORT Plan of Care Name Dates Details Planned Observations Planned Goals not documented Planned Encounters Appointment; SHERRON BARNETT M.D. On: 22-Jan-2019 9:30 Instructions Name Dates Details Instructions not documented Encounters Appointment; SHERRON BARNETT M.D. Encounter Diagnosis: Problem not documented On: 12-Jan-2019 9:00
--- NOTE | 2019-08-12 00:13 | Emergency Department Note ---
History of Present Illnes History of Present Illness Chief Complaint: Back Pain History of Present Illness This is a 74 year old female with 15 day h/o of suprapubic pain . Denies f//n/c/v. Onset (how long ago): day(s) (15) Radiation: Reports abdomen Severity: moderate Onset quality: gradual Duration (how long): day(s) (15) Timing of current episode: constant Progression: worsening Chronicity: new Relieving factors: none Exacerbating factors: none Associated symptoms: Reports denies other symptoms Past Medical/Family History Physician Review I have reviewed the patient's past medical and family history. Any updates have been documented here. Past Medical History Recent Fever: No Clinical Suspicion of Infectio: No New/Unexplained Change in Ment: No Past Medical History: COPD, Asthma, Hypothyroidism, Kidney Stones, UTI's, GERD, Hyperlipedemia Other Medical History: BELLS PALSEY ESOPHAGEAL VARICIES Past Surgical History: , Hernia Repair Other Surgery: VARICOES SX URETHRAL STENTS RIGHT SHOULDER SX Social History Smoking Cessation: Never Smoker Alcohol Use: None Any Illegal Drug Use: No Other Last Tetanus: UNKNOWN Review of Systems Review of Systems Constitutional: Reports no symptoms EENTM: Reports no symptoms Cardiovascular: Reports no symptoms Respiratory: Reports no symptoms Gastrointestinal: Reports abdominal pain Genitourinary: Reports no symptoms Musculoskeletal: Reports no symptoms Integumentary: Reports no symptoms Neurological: Reports no symptoms Psychological: Reports no symptoms Endocrine: Reports no symptoms Hematological/Lymphatic: Reports no symptoms Review of other systems All other systems reviewed and negative. Physical Exam Related Data Allergies: Coded Allergies: No Known Allergies (Unverified , 08/04/18) Physical Exam CONSTITUTIONAL Constitutional: Reports well-developed, Reports well-nourished HENT HENT: Reports normocephalic, Reports atraumatic, Reports oropharynx clear/moist, Reports nose normal HENT L/R: Reports left ext ear normal, Reports right ext ear normal EYES Eyes: Reports PERRL, Reports conjunctivae normal NECK Neck: Reports ROM normal PULMONARY Pulmonary: Reports effort normal, Reports breath sounds normal CARDIOVASCULAR Cardiovascular: Reports regular rhythm, Reports heart sounds normal, Reports capillary refill normal, Reports normal rate GASTROINTESTINAL Abdominal: Reports soft, Reports bowel sounds normal, Reports tender (lower abd, suprapubic) GENITOURINARY Genitourinary: Reports exam deferred SKIN Skin: Reports warm, Reports dry MUSCULOSKELETAL Musculoskeletal: Reports ROM normal NEUROLOGICAL Neurological: Reports alert, Reports oriented x 3, Reports no gross motor or sensory deficits PSYCHOLOGICAL Psychological: Reports mood/affect normal, Reports judgement normal Results Laboratory Laboratory Laboratory Tests Test 08/12/19 01:10 08/12/19 00:12 White Blood Count 4.21 x10e3/uL (4.8-10.8) Red Blood Count 4.61 x10e6/uL (3.6-5.1) Hemoglobin 13.3 g/dL (12.0-16.0) Hematocrit 40.1 % (34.2-44.1) Mean Corpuscular Volume 87.0 fL (81-99) Mean Corpuscular Hemoglobin 28.9 pg (28-32) Mean Corpuscular Hemoglobin Concent 33.2 g/dL (31-35) Red Cell Distribution Width 13.0 % (11.7-14.4) Platelet Count 212 x10e3/uL (140-360) Neutrophils (%) (Auto) 41.3 % (38.7-80.0) Lymphocytes (%) (Auto) 46.8 % (18.0-39.1) Monocytes (%) (Auto) 8.1 % (4.4-11.3) Eosinophils (%) (Auto) 3.1 % (0.0-6.0) Basophils (%) (Auto) 0.5 % (0.0-1.0) Neutrophils # (Auto) 1.7 (2.1-6.9) Lymphocytes # (Auto) 2.0 (1.0-3.2) Monocytes # (Auto) 0.3 (0.2-0.8) Eosinophils # (Auto) 0.1 (0.0-0.4) Basophils # (Auto) 0.0 (0.0-0.1) Absolute Immature Granulocyte (auto 0.01 x10e3/uL (0-0.1) Sodium Level 141 mmol/L (136-145) Potassium Level 4.0 mmol/L (3.5-5.1) Chloride Level 105 mmol/L (98-107) Carbon Dioxide Level 24 mmol/L (22-29) Anion Gap 16.0 mmol/L (8-16) Blood Urea Nitrogen 15 mg/dL (7-26) Creatinine 0.88 mg/dL (0.57-1.11) Estimat Glomerular Filtration Rate > 60 ML/MIN (60-) BUN/Creatinine Ratio 17 (6-25) Glucose Level 103 mg/dL (74-118) Calcium Level 9.8 mg/dL (8.4-10.2) Total Bilirubin 0.3 mg/dL (0.2-1.2) Aspartate Amino Transf (AST/SGOT) 16 IU/L (5-34) Alanine Aminotransferase (ALT/SGPT) 19 IU/L (0-55) Alkaline Phosphatase 56 IU/L (40-150) Total Protein 7.4 g/dL (6.5-8.1) Albumin 4.1 g/dL (3.5-5.0) Globulin 3.3 g/dL (2.3-3.5) Albumin/Globulin Ratio 1.2 (0.8-2.0) Urine Color Yellow (YELLOW) Urine Clarity Clear (CLEAR) Urine pH 5 (5 - 7) Urine Specific Turner 1.015 (1.010-1.025) Urine Protein Negative (NEGATIVE) Urine Glucose (UA) Negative (NEGATIVE) Urine Ketones Negative (NEGATIVE) Urine Blood 1+ (NEGATIVE) Urine Nitrite Negative (NEGATIVE) Urine Bilirubin Negative (NEGATIVE) Urine Urobilinogen 0.2 mg/dL (0.2 - 1) Urine Leukocyte Esterase Negative (NEGATIVE) Urine RBC 0-5 /HPF (0-5) Urine WBC 0-5 /HPF (0-5) Urine Epithelial Cells Few /LPF (NONE) Urine Bacteria Few /HPF (NONE) Lab results reviewed: Yes Imaging Imaging results reviewed: Yes Impressions [place] [address] Patient Name: MALIA PACHECO MR #: [id number] : 1945 Age/Sex: 74/F Req #: [id number] Adm Physician: Ordered by: EASTON MAYERS DO Report #: [id number] Location: ER Room/Bed: Procedure: [id number] CT/CT ABDOMEN/PELVIS W Exam Date: 08/12/19 Exam Time: 0200 REPORT STATUS: Signed EXAM: CT Abdomen and Pelvis WITH contrast INDICATION: ^lower abd pain ^[id number] ^0200 COMPARISON: CT dated 08/04/2018 TECHNIQUE: Abdomen and pelvis were scanned utilizing a multidetector helical scanner from the lung base to the pubic symphysis after administration of IV contrast. Coronal and sagittal reformations were obtained. Dose modulation, iterative reconstruction, and/or weight based adjustment of the mA/kV was utilized to reduce the radiation dose to as low as reasonably achievable. Routine protocol was performed. Scan was performed when during portal venous phase. IV CONTRAST: 100 mL of Omnipaque 370 ORAL CONTRAST: None COMPLICATIONS: None RADIATION DOSE: Total DLP: 542.75 mGy*cm Estimated effective dose: (DLP x 0.015 x size factor) mSv CTDIvol has been reviewed. It is below the limits set by the Radiation Protocol Committee (RPC). FINDINGS: LINES and TUBES: None. LOWER THORAX: Unchanged punctate left lower lobe nodule. HEPATOBILIARY: No focal hepatic lesions. No biliary ductal dilation. GALLBLADDER: No radio-opaque stones or sludge. No wall thickening. SPLEEN: No splenomegaly. PANCREAS: No focal masses or ductal dilatation. ADRENALS: No adrenal nodules KIDNEYS/URETERS: Kidneys enhance symmetrically. No hydronephrosis. No cystic or solid mass lesions. No stones. GI TRACT: No abnormal distention, wall thickening, or evidence of bowel obstruction. There are diverticula within the colon. Questionable minimal adjacent fat stranding (series 2, image 60). Appendix is normal. PELVIC ORGANS/BLADDER: Unremarkable. LYMPH NODES: No lymphadenopathy. VESSELS: Unremarkable. PERITONEUM / RETROPERITONEUM: No free air or fluid. BONES: Bilateral L5 pars defects with L5-S1 grade 1 spondylolisthesis. SOFT TISSUES: Small fat-containing right inguinal hernia. IMPRESSION: 1. Colonic diverticulosis with questionable minimal adjacent fat stranding in left lower quadrant, which could be artifactual or represent mild diverticulitis. Otherwise, no acute inflammatory process in the abdomen/pelvis. Signed by: Dr. Zoran Chang MD on 08/12/2019 2:36 AM Dictated By: ZORAN CHANG MD 5 Transcribed By: ANKIT on 08/12/19235 COPY TO: EASTON MAYERS DO~ Assessment & Plan Medical Decision Making MDM 74 yof with lower abdominal pain. CBC, CMP, UA and CTS ordered to r/o appendicitis, diverticulitis, UTI, kidney stone, perforated viscus, and biliary pathology Assessment & Plan Final Impression: (1) Diverticulitis Depart Disposition: HOME, SELF-CARE Last Vital Signs Date Time Temp Pulse Resp B/P (MAP) Pulse Ox O2 Delivery O2 Flow Rate FiO2 08/12/19 03:49 144/71 08/12/19 03:40 52 18 98 08/12/19 00:02 97.7 Home Meds Active Scripts Metronidazole (FLAGYL) 500 Mg Tablet, 500 MG PO Q8H for 5 Days Prov:ELLEN NAIK MD 08/08/18 Reported Medications [Tomigan] No Conflict Check, 0.01 % OP/OT DAILY 06/25/18 [System Eye Drops] No Conflict Check, 1 DROP OP/OT DAILY 06/25/18 [Linzess] No Conflict Check, 145 MG PO PRN 06/25/18 [Oscal Calcium D3] No Conflict Check, 200 UNITS PO DAILY 06/25/18 Albuterol Sulf* (PROAIR HFA INHALER*) 8.5 Gm Inh, 4 INH INH PRN 06/25/18 Ergocalciferol (Vitamin D2) (VITAMIN D2) 50,000 Unit Capsule, 41025 UNITS PO WEEKLY 06/25/18 Levothyroxine Sodium (LEVOTHYROXINE SODIUM) 88 Mcg Tablet, 88 MCG PO DAILY, #30 TAB 06/25/18 Esomeprazole Magnesium (NEXIUM) 40 Mg Capsule.dr 40 MG PO DAILY PROTONIX THERAPEUTIC SUBSTITUTE FOR NEXIUM PER [facility] 06/25/18 [Flutivent] No Conflict Check, 125 MCG INH PRN 10/19/14 EASTON MAYERS DO Aug 12, 2019 00:13
[2019-08-12 00:55] LABS: BILIRUBIN,URINE NEGATIVE (NEGATIVE); CLARITY,URINE CLEAR (CLEAR); COLOR,URINE YELLOW (YELLOW); KETONES,URINE NEGATIVE (NEGATIVE); LEUKOCYTE ESTERASE ,URINE NEGATIVE (NEGATIVE); NITRITE,URINE NEGATIVE (NEGATIVE); PROTEIN,URINE DIPSTICK NEGATIVE (NEGATIVE); URINE UROBILINOGEN 0.2 mg/dL (0.2 - 1)
[2019-08-12 00:56] LABS: BACTERIA,URINE FEW /HPF; EPITHELIAL CELLS,URINE FEW /LPF; RBC,URINE 0-5 /HPF (0-5); WBC,URINE (MAN) 0-5 /HPF (0-5)
[2019-08-12 01:20] LABS: BASOPHILS % 0.5 % (0.0-1.0); EOSINOPHILS # (AUTO) 0.1 (0.0-0.4); EOSINOPHILS % 3.1 % (0.0-6.0); HEMATOCRIT 40.1 % (34.2-44.1); HEMOGLOBIN 13.3 g/dL (12.0-16.0); LYMPHOCYTES % 46.8 % (18.0-39.1); MEAN CORPUSCULAR HEMOGLOBIN 28.9 pg (28-32); MEAN CORPUSCULAR HGB CONC 33.2 g/dL (31-35); MONOCYTES # (AUTO) 0.3 (0.2-0.8); MONOCYTES % 8.1 % (4.4-11.3); NEUTROPHILS # (AUTO) 1.7 (2.1-6.9); NEUTROPHILS % 41.3 % (38.7-80.0); PLATELET COUNT 212 x10e3/uL (140-360); RED BLOOD COUNT 4.61 x10e6/uL (3.6-5.1)
[2019-08-12 01:38] LABS: ALANINE AMINOTRANSFERASE 19 IU/L (0-55); ALBUMIN 4.1 g/dL (3.5-5.0); ALBUMIN/GLOBULIN RATIO 1.2 (0.8-2.0); ALKALINE PHOSPHATASE 56 IU/L (40-150); BLOOD UREA NITROGEN 15 mg/dL (7-26); BUN/CREATININE RATIO 17 (6-25); CALCIUM 9.8 mg/dL (8.4-10.2); CARBON DIOXIDE 24 mmol/L (22-29); CHLORIDE 105 mmol/L (98-107); CREATININE, SERUM 0.88 mg/dL (0.57-1.11); EST GLOMERULAR FILTRATION RATE > 60 ML/MIN (60-); GLUCOSE 103 mg/dL (74-118); SODIUM 141 mmol/L (136-145)
[2019-08-12] MEDS ORDERED: IOPAMIDOL 370 MG/ML 200 ML INFUS..BTL INJ ONE (01:50)
[2019-08-12] MEDS ORDERED: SODIUM CHLORIDE 0.9% 50ML 50 ML ONE (01:50)
[2019-08-12] MEDS ORDERED: MORPHINE SULFATE INJ 4 MG/ML INJ 1ML IV STA (02:27)
[2019-08-12] MEDS ORDERED: ONDANSETRON HCL INJ 2MG/ML 2ML 2 MG/ML VIAL ONE (02:38)
[2019-08-12] MEDS ORDERED: MORPHINE SULFATE INJ 4 MG/ML INJ 1ML ONE (02:38)
--- NOTE | 2019-08-12 02:39 | Diagnostic Imaging Report ---
EXAM: CT Abdomen and Pelvis WITH contrast INDICATION: ^lower abd pain ^[id number] ^0200 COMPARISON: CT dated 08/04/2018 TECHNIQUE: Abdomen and pelvis were scanned utilizing a multidetector helical scanner from the lung base to the pubic symphysis after administration of IV contrast. Coronal and sagittal reformations were obtained. Dose modulation, iterative reconstruction, and/or weight based adjustment of the mA/kV was utilized to reduce the radiation dose to as low as reasonably achievable. Routine protocol was performed. Scan was performed when during portal venous phase. IV CONTRAST: 100 mL of Omnipaque 370 ORAL CONTRAST: None COMPLICATIONS: None RADIATION DOSE: Total DLP: 542.75 mGy*cm Estimated effective dose: (DLP x 0.015 x size factor) mSv CTDIvol has been reviewed. It is below the limits set by the Radiation Protocol Committee (RPC). FINDINGS: LINES and TUBES: None. LOWER THORAX: Unchanged punctate left lower lobe nodule. HEPATOBILIARY: No focal hepatic lesions. No biliary ductal dilation. GALLBLADDER: No radio-opaque stones or sludge. No wall thickening. SPLEEN: No splenomegaly. PANCREAS: No focal masses or ductal dilatation. ADRENALS: No adrenal nodules KIDNEYS/URETERS: Kidneys enhance symmetrically. No hydronephrosis. No cystic or solid mass lesions. No stones. GI TRACT: No abnormal distention, wall thickening, or evidence of bowel obstruction. There are diverticula within the colon. Questionable minimal adjacent fat stranding (series 2, image 60). Appendix is normal. PELVIC ORGANS/BLADDER: Unremarkable. LYMPH NODES: No lymphadenopathy. VESSELS: Unremarkable. PERITONEUM / RETROPERITONEUM: No free air or fluid. BONES: Bilateral L5 pars defects with L5-S1 grade 1 spondylolisthesis. SOFT TISSUES: Small fat-containing right inguinal hernia. IMPRESSION: 1. Colonic diverticulosis with questionable minimal adjacent fat stranding in left lower quadrant, which could be artifactual or represent mild diverticulitis. Otherwise, no acute inflammatory process in the abdomen/pelvis. Signed by: Dr. Zoran Molina MD on 08/12/2019 2:36 AM
[2019-08-12] MEDS ORDERED: ONDANSETRON HCL INJ 2MG/ML 2ML 2 MG/ML VIAL IV STA (02:48)
[2019-08-12 03:40] VITALS: BP 144/71
== END 2019-08-12 03:56 | disposition home or self-care (01) ==
LOC: ER 23:54
DX: R10.30 Lower abdominal pain, unspecified (principal); K57.90 Diverticulosis of intestine, part unspecified, without perforation or abscess without bleeding; E78.5 Hyperlipidemia, unspecified; K21.9 Gastro-esophageal reflux disease without esophagitis; J44.9 Chronic obstructive pulmonary disease, unspecified
CPT/HCPCS: 36415; 74177; 80053; 81001; 85025; 99284; J2270; J2405; Q9967

== ENCOUNTER 2020-10-11 20:23 | Emergency (ER) | payer MEDICARE, OTHER ==
[~2020-10-11] VITALS: Ht 160 cm; Wt 74.8 kg
[2020-10-11] MEDS ORDERED: AUGMENTIN 500-1 EACH PO ×2 (21:00→21:13)
[2020-10-11] MEDS ORDERED: HYDROCODONE/APAP 5MG-325MG TAB PO ONE (22:00)
[2020-10-11] MEDS ORDERED: TETANUS/DIPHTHERIA TOX ADULT 0.5 ML SYR IM ONE (23:00)
[2020-10-11] MEDS ORDERED: HYDROCODONE/APAP 5MG-325MG TAB ONE (23:36)
[2020-10-11] MEDS ORDERED: TETANUS/DIPHTHERIA TOX ADULT 0.5 ML SYR ONE (23:37)
== END 2020-10-11 23:30 | disposition home or self-care (01) ==
LOC: FSED 20:55
DX: S41.051A Open bite of right shoulder, initial encounter (principal); S21.151A Open bite of right front wall of thorax without penetration into thoracic cavity, initial encounter; J44.9 Chronic obstructive pulmonary disease, unspecified; E03.9 Hypothyroidism, unspecified; E78.5 Hyperlipidemia, unspecified
CPT/HCPCS: 71045; 90714; 99283

== ENCOUNTER 2021-10-04 19:10 | Emergency (ER) | payer MEDICARE, OTHER ==
[~2021-10-04] VITALS: Ht 160 cm; Wt 74.8 kg
[~2021-10-04 19:10] MED LIST changes: +AUGMENTIN 500-1 EACH PO
[2021-10-04 19:58] LABS: BASOPHILS % 0.3 % (0.0-1.0); EOSINOPHILS # (AUTO) 0.1 (0.0-0.4); EOSINOPHILS % 4.2 % (0.0-6.0); HEMATOCRIT 39.5 % (34.2-44.1); HEMOGLOBIN 12.6 g/dL (12.0-16.0); LYMPHOCYTES # (AUTO) 1.7 (1.0-3.2); MEAN CORPUSCULAR HEMOGLOBIN 28.8 pg (28-32); MEAN CORPUSCULAR HGB CONC 31.9 g/dL (31-35); MEAN CORPUSCULAR VOLUME 90.2 fL (81-99); MONOCYTES # (AUTO) 0.3 (0.2-0.8); NEUTROPHILS # (AUTO) 0.9 (2.1-6.9); NEUTROPHILS % 30.5 % (38.7-80.0); PLATELET COUNT 192 x10e3/uL (140-360); RED BLOOD COUNT 4.38 x10e6/uL (3.6-5.1); RED CELL DISTRIBUTION WIDTH 13.9 % (11.7-14.4)
[2021-10-04 20:01] LABS: CLARITY,URINE CLEAR (CLEAR); COLOR,URINE YELLOW (YELLOW); LEUKOCYTE ESTERASE ,URINE NEGATIVE (NEGATIVE); NITRITE,URINE NEGATIVE (NEGATIVE); PROTEIN,URINE DIPSTICK NEGATIVE (NEGATIVE)
[2021-10-04 20:02] LABS: KETONES,URINE NEGATIVE (NEGATIVE); URINE UROBILINOGEN 0.2 mg/dL (0.2 - 1)
[2021-10-04 20:09] LABS: BACTERIA,URINE RARE /HPF; EPITHELIAL CELLS,URINE FEW /LPF; RBC,URINE 0-5 /HPF (0-5); RENAL EPITHELIAL CELLS,URINE FEW
[2021-10-04 20:15] LABS: ALANINE AMINOTRANSFERASE 26 IU/L (0-55); ALBUMIN/GLOBULIN RATIO 1.1 (0.8-2.0); ALKALINE PHOSPHATASE 76 IU/L (40-150); ANION GAP 13.4 mmol/L (8-16); BLOOD UREA NITROGEN 15 mg/dL (7-26); BUN/CREATININE RATIO 17 (6-25); CALCIUM 8.5 mg/dL (8.4-10.2); CARBON DIOXIDE 26 mmol/L (22-29); CHLORIDE 102 mmol/L (98-107); CREATINE KINASE 148 IU/L (29-168); GLUCOSE 132 mg/dL (74-118); POTASSIUM 3.4 mmol/L (3.5-5.1); SODIUM 138 mmol/L (136-145)
[2021-10-04] MEDS ORDERED: PREDNISONE20 MG PO (20:51)
[2021-10-04] MEDS ORDERED: AZITHROMYCIN250 MG PO (20:51)
[2021-10-04] MEDS ORDERED: VENTOLIN HFA18 GM INH (20:51)
[2021-10-04 21:05] VITALS: BP 139/64
== END 2021-10-04 21:06 | disposition home or self-care (01) ==
LOC: ER 19:23
DX: R06.02 Shortness of breath (principal); U07.1 COVID-19; R07.89 Other chest pain; J44.9 Chronic obstructive pulmonary disease, unspecified; E78.5 Hyperlipidemia, unspecified; E03.9 Hypothyroidism, unspecified; K21.9 Gastro-esophageal reflux disease without esophagitis; Z87.442 Personal history of urinary calculi
CPT/HCPCS: 36415; 71045; 80053; 81001; 82550; 82553; 84484; 85025; 93005; 99284; U0002